=== PATIENT | female | born 1990 | race Caucasian/White ===

== ENCOUNTER 2023-02-07 20:35 | Outpatient (REF) | payer BC, SELFPAY ==
[2023-02-10 22:06] LABS: Age Gdln ACOG Testing Note (.); HPV Aptima Negative (Negative); IGP, Aptima HPV, rfx 16/18,45 Note (.)
== END 2023-02-07 20:36 | disposition home or self-care (01) ==
LOC: LAB 20:35
PROVIDERS: Visit Provider Physician Assistant
DX: Z12.4 Encounter for screening for malignant neoplasm of cervix (principal); Z11.51 Encounter for screening for human papillomavirus (HPV)
CPT/HCPCS: 87624; G0145

== ENCOUNTER 2023-03-24 12:01 | Outpatient (OUT) | payer BC, SELFPAY ==
[2023-03-24 12:45] LABS: Basophils Absolute Auto 0.1 10^3/uL (0.0-0.1); Basophils Percent Auto 0.7 % (0.2-2.0); Eosinophils Absolute Auto 0.1 10^3/uL (0.0-0.7); Eosinophils Percent Auto 1.3 % (0.9-7.0); Hematocrit 41.3 % (36.0-48.0); Hemoglobin 13.7 g/dL (12.0-16.0); Immature Granulocytes Abs Auto 0.02 10^3/uL (0.00-0.03); Immature Granulocytes Pct Auto 0.2 % (0.0-0.5); Lymphocytes Absolute Auto 2.7 10^3/uL (1.2-3.8); Lymphocytes Percent Auto 32.4 % (20.5-60.0); Mean Corpuscular HGB Conc 33.2 g/dL (29.9-35.2); Mean Corpuscular Hemoglobin 30.1 pg (26.7-34.0); Mean Corpuscular Volume 90.8 fL (81.0-99.0); Mean Platelet Volume 9.1 fL (9.5-13.5); Monocytes Absolute Auto 0.8 10^3/uL (0.3-0.8); Monocytes Percent Auto 9.8 % (1.7-12.0); Neutrophils Absolute Auto 4.6 10^3/uL (1.4-6.5); Neutrophils Percent Auto 55.6 % (43.0-75.0); Platelet Count 396 10^3/uL (150-450); Red Blood Count 4.55 10^6/uL (4.20-5.40); Red Cell Distribution Width 14.2 % (11.0-15.0); White Blood Count 8.2 10^3/uL (4.0-11.0)
[2023-03-24 12:58] LABS: Estimated Average Glucose 114 mg/dL; Glycohemoglobin A1C 5.6 % (4.5-6.2)
[2023-03-24 13:53] LABS: Alanine Aminotransferase 41 U/L (14-59); Alkaline Phosphatase 91 U/L (46-116); Anion Gap 16.8; Aspartate Amino Transferase 20 U/L (15-37); BUN Creatinine Ratio 14.1; Bilirubin Total 0.3 mg/dL (0.2-1.0); Calcium 9.1 mg/dL (8.5-10.1); Carbon Dioxide 24.4 mmol/L (21.0-32.0); Chloride 103 mmol/L (98-107); Chol HDL Ratio 2.6; Cholesterol 224 mg/dL (<=200); Estimated GFR (African America >60 (>=60); Estimated GFR (Non-African Ame >60 (>=60); Globulin 3.9 g/dL; Glucose 81 mg/dL (74-106); HDL Cholesterol 87 mg/dL (40-60); Potassium 4.2 mmol/L (3.5-5.1); Sodium 140 mmol/L (136-145); Total Protein 7.9 g/dL (6.4-8.2); Triglycerides 109 mg/dL (<=150); VLDL CHOLESTEROL 21.8 mg/dL
== END 2023-03-24 12:02 | disposition home or self-care (01) ==
LOC: LAB 12:02
DX: Z00.00 Encounter for general adult medical examination without abnormal findings (principal)
CPT/HCPCS: 36415; 80053; 80061; 83036; 84443; 85025

== ENCOUNTER 2024-03-19 19:30 | Outpatient (REF) | payer BC, SELFPAY ==
[2024-03-22 15:10] LABS: Age Gdln ACOG Testing Note (.); HPV Aptima Negative (Negative); IGP, Aptima HPV, rfx 16/18,45 Note (.)
== END 2024-03-19 19:31 | disposition home or self-care (01) ==
LOC: LAB 19:30
PROVIDERS: Visit Provider Physician Assistant
DX: Z01.419 Encounter for gynecological examination (general) (routine) without abnormal findings (principal)
CPT/HCPCS: 87624; 88175

== ENCOUNTER 2025-05-28 20:02 | Outpatient (REF) | payer BC, SELFPAY ==
--- OUTSIDE RECORDS SUMMARY | 2015-06-03 05:15 | XMS_ITS | Continuity of Care Document ---
Author Organization [facility] Address [address] [place] [address] Phone Care Team Providers Care Granular Operator Name Role Phone Sia BISHOP Hamlet Unavailable Unavailable Procedures Procedure Date IMMUNIZATION ADMIN HEP B VACCINE, ADULT, IM IMMUNIZATION ADMIN, EACH ADD FLU VAC NO PRSV 4 CHESTER 3 YRS+ IMMUNIZATION ADMIN HEP B VACCINE, ADULT, IM IMMUNIZATION ADMIN, EACH ADD FLU VAC NO PRSV 4 CHESTER 3 YRS+ Advance Directives Directive Yes / No Effective Date File Name No Information Encounters Encounter Description Practice Location Reason(s) For Visit Diagnoses Date Provider Providers Copied on Encounter [facility], [address], [place], [id number], tel:[phone] [facility] No Information Sia KNIGHT Hamlet. [address], [place], [id number], [place]. tel:[phone] Family History Family Member Type Diagnosis Age At Onset No Information Immunizations Vaccine Date Status Comments Hep B, adult, 3 dose administered Source: New Immunization Record Influenza virus vaccine, injectable, quadrivalent, split virus, preservative free, 3 years or older Fluarix, Flulaval or Fluzone Quad [id number] administered Source: New Immuniza tion Record Payers Payer name Insurance type Covered republican ID Authoriza tion(s) [facility] CI [id number] Social History Type Description Quantity Date Captured Comments Sex Female Smoking Status No Information Chief Complaint And Reason For Visit No Information Reason For Referral Reason For Referral No Information History Of Present Illness Encounter Date Complaint History Of Prese nt Illness No Information Functional Status Date Functional Assessmen t No Information Instructions Date Instruction Additional Infor mation No Information Assessments Type Assessment Date No Information Patient Care Teams Name Effective Dates (start - stop) Status Members No Information
--- OUTSIDE RECORDS SUMMARY | 2020-02-07 07:45 | XMS_ITS | Continuity of Care Document ---
Author Organization [facility] Address [address] [place] [address] Phone Care Team Providers Care String Studies Director Name Role Phone Hamlet Larsen Unavailable Unavailable Results Test Name Date and Time Measure Units Reference Range Abnormal Flag Status Comments Panel Description: SARS-CoV-2, GIGI Final SARS-CoV- 2, GIGI 020 18:33:00 Not Detected Not Detected Final This test was developed and its performance characteristics determinedby [employer]. This test has not been FDA cleared orapproved. This test has been authorized by FDA under an Emergency UseAuthorization (EUA). This test is only authorized for the duration oftime the declaration that circumstances exist justifying theauthorization of the emergency use of in vitro diagnostic tests fordetection of SARS-CoV-2 virus and/or diagnosis of COVID-19 infectionunder section 564(b)(1) of the Act, 21 U.S.C. 360bbb-3(b)(1), unlessthe authorization is terminated or revoked sooner.When diagnostic testing is negative, the possibility of a falsenegative result should be considered in the context of a patient'srecent exposures and the presence of clinical signs and symptomsconsistent with COVID-19. An individual without symptoms of COVID-19and who is not shedding SARS-CoV-2 virus would expect to have anegative (not detected) result in this assay.Performed by:[facility] ([facility]) Advance Directives Directive Yes / No Effective Date File Name No Information Encounters Encounter Description Practice Location Reason(s) For Visit Diagnoses Date Provider Providers Copied on Encounter [facility], [address] [place] [address], [place], [place], [id number], tel:[phone] [facility] Encounter for screening for other viral diseases Sia Pham. [address] [facility], [place], [place], [id number], [place]. tel:[phone] Family History Family Member Type Diagnosis Age At Onset No Information Payers Payer name Insurance type Covered libertarian ID Authorpromise spaindarlene(s) [employer] WELLS [id number] Social History Type Description Quantity Date Captured Comments Alcohol Use Details Unknown Caffeine Use Details Unknown Tobacco Use Status No Information Smoking Status No Information Sex Female Sexual Orientation Straight or heterosexual Gender Identity Female Chief Complaint And Reason For Visit No Information Reason For Referral Reason For Referral No Information History Of Present Illness Encounter Date Complaint History Of Prese nt Illness No Information Functional Status Date Functional Assessmen t No Information Instructions Date Instruction Additional Infor mation No Information Assessments Type Assessment Date assessment Encounter for screening for othe r viral diseases Patient Care Teams Name Effective Dates (start - stop) Status Members No Information
--- OUTSIDE RECORDS SUMMARY | 2025-05-28 10:00 | XMS_ITS | Encounter Summary ---
Author Organization [facility] Address [address] [facility] [place] [address] Care Team Providers Care Construction Rep Name Role Phone Real Anton DO Primary Care Provider [phone] Reason for Visit * ReasonCommentsGynecologic Exam Encounter Details DateTypeDepartmentCare Team (Latest Contact Info)Hfmxcvbelsy73/29/2025 10:00 AM EDTProcedure Visit [facility] [address] [place] [address] Naida Marino, CHRISTY [address] [place] [address] Well woman exam with routine gynecological exam Social History Tobacco UseTypesPacks/DayYears UsedDateSmoking Tobacco: Never Assessed CommentsNoSex and Gender InformationValueDate RecordedSex Assigned at BirthNot on fileLegal EjpEbvoyc02/15/2023 7:21 PM EDTGender IdentityNot on fileSexual OrientationNot on filedocumented as of this encounter Progress Notes * Naida Marino NP - 05/28/2025 10:00 AM EDT Reason for Appointment: Patient ID: Emilie Dc is a 34 y.o. female who presents for Gynecologic Exam Patient presents today for Annual Exam. MEDICATIONS Current Outpatient Medications Medication Instructions levothyroxine (Synthroid, Levoxyl) 150 MCG tablet TAKE 1 TABLET BY MOUTH EVERY DAY IN THE MORNING ON EMPTY STOMACH FOR 90 DAYS ALLERGIES Allergies Allergen Reactions Cefadroxil Rash PROBLEMS Active Ambulatory Problems Diagnosis Date Noted No Active Ambulatory Problems Resolved Ambulatory Problems Diagnosis Date Noted No Resolved Ambulatory Problems Past Medical History: Diagnosis Date Hypothyroid HISTORY PAST MEDICAL HISTORY SOCIAL HISTORY Past Medical History: Diagnosis Date Hypothyroid Social History Tobacco Use Smoking status: Not on file Smokeless tobacco: Not on file Substance Use Topics Alcohol use: Not on file Drug use: Not on file FAMILY HISTORY Family History Problem Relation Name Age of Onset Hypertension Mother Melanoma Mother Asthma Daughter SURGICAL HISTORY History reviewed. No pertinent surgical history. REVIEW OF SYSTEMS Review of Systems: Review of Systems Constitutional: Negative. HENT: Negative. Eyes: Negative. Respiratory: Negative. Cardiovascular: Negative. Gastrointestinal: Negative. Genitourinary: Negative. Musculoskeletal: Negative. Skin: Negative. Neurological: Negative. All other systems reviewed and are negative. Hematological: Negative. Endocrine: Negative. Allergic/Immunologic: Negative. OBJECTIVE Objective: Physical Exam Constitutional: Appearance: Normal appearance. She is well-developed. Genitourinary: Vulva normal. Breasts: Breasts are soft. Right: Normal. Left: Normal. Cardiovascular: Rate and Rhythm: Normal rate and regular rhythm. Pulmonary: Effort: Pulmonary effort is normal. Breath sounds: Normal breath sounds. Abdominal: General: Bowel sounds are normal. There is no distension. Palpations: Abdomen is soft. Tenderness: There is no abdominal tenderness. There is no guarding or rebound. Musculoskeletal: General: No swelling. Normal range of motion. Right lower leg: No edema. Left lower leg: No edema. Neurological: Mental Status: She is alert and oriented to person, place, and time. Skin: General: Skin is warm and dry. Psychiatric: Mood and Affect: Mood normal. Behavior: Behavior normal. Vitals and nursing note reviewed. Exam conducted with a science interpreter present. Vitals: Estimated body mass index is 39.86 kg/m?? as calculated from the following: Height as of 03/19/24: 5'. Weight as of 03/19/24: 204 lb 1.9 oz. BP: No LMP recorded. ASSESSMENT & PLAN ICD-10-CM 1. Well woman exam with routine gynecological exam Z01.419 Pap Smear HPV DNA probe, amplified Annual Exam: Patient presents today for an annual exam. Patient states she is doing well and has no complaints. Pap was obtained without difficulty. Orders Placed This Encounter Procedures HPV DNA probe, amplified Follow Up: Patient is to return in one year for annual unless needed otherwise. Documented by Maggi Cottrell CST on behalf of: Naida Marino NP documented in this encounter Plan of Treatment DateTypeDepartmentCare Team (Latest Contact Info)Uxqnrashbgq12/30/2025 3:05 PM EDTOffice Visit [facility] [address] [place] [address] Eli Fulton, FIRST AID INSTRUCTOR-AD CLERK [address] [place] [address] NameTypePriorityAssociated DiagnosesOrder SchedulePap SmearPathology and CytologyRoutine Well woman exam with routine gynecological exam Ordered: 05/28/2025HPV DNA probe, amplifiedMicrobiologyRoutine Well woman exam with routine gynecological exam Ordered: 05/28/2025documented as of this encounter Visit Diagnoses Diagnosis Well woman exam with routine gynecological exam Routine gynecological examination documented in this encounter Care Teams Team MemberRelationshipSpecialtyStart DateEnd Date Real Anton DO [address] [place] [phone] PCP - General02/07/23documented as of this encounter
--- OUTSIDE RECORDS SUMMARY | 2025-05-28 20:06 | XMS_ITS | Clinical Summary ---
Author Organization [facility] Address [address] [place] [address] Care Team Providers Care Wool Cleaner Name Role Phone Real Anton Primary Care Provider [phone] Allergies Active AllergyReactionsCriticalityNoted McrqNkoymnxlIrpvwaxfauGhfwCja56/24/2023 Medications MedicationSigDispense QuantityRefillsLast FilledStart DateEnd DateStatus levothyroxine (Synthroid, Levoxyl) 150 MCG tablet TAKE 1 TABLET BY MOUTH EVERY DAY IN THE MORNING ON EMPTY STOMACH FOR 90 DAYS 09/13/2022ctive Encounters DateTypeDepartmentCare BppxVzdwfuhkrsb86/29/2025 10:00 AM EDTProcedure Visit [facility] [address] [place] [address] Naida Marino NP Well woman exam with routine gynecological exam05/28/2025amboo flowsheet [facility] [address] [place] [address] Naida Marino NP 05/22/2025Orders Only [facility] [address] [place] [address] Luz Doss LPN from Last 3 Months Family History Medical HistoryRelationNameCommentsAsthmaDaughter 2HypertensionMotherMelanoma MotherRelationNameStatusCommentsDaughter 1AliveDaughter 2AliveFatherAliveMother Alive Social History Tobacco UseTypesPacks/DayYears UsedDateSmoking Tobacco: Never Assessed CommentsNoSex and Gender InformationValueDate RecordedSex Assigned at BirthNot on fileLegal SseXxbeki41/15/2023 7:21 PM EDTGender IdentityNot on fileSexual OrientationNot on file Last Filed Vital Signs Vital SignReadingTime TakenCommentsBlood Cbvvuadg753/68003/19/2024 9:21 AM EDT Pulse--Temperature--Respiratory Rate--Oxygen Saturation--Inhaled Oxygen Concentration--Dvhnmp08.6 kg (204 lb 1.9 oz)03/19/2024 9:21 AM VYZQdsfvh087.4 cm (5')03/19/2024 9:21 AM EDTBody Mass Index39.8603/19/2024 9:21 AM EDT Plan of Treatment DateTypeDepartmentCare Team (Latest Contact Info)Petscilrsrw34/30/2025 3:05 PM EDTOffice Visit [facility] [address] [place] [address] Eli Fulton APRN-STEWARD RACETRACK [address] [place] [address] Health MaintenanceDue DateLast DoneCommentsMMR Vaccines (1 of 1 - Standard series)11/19/1991DTaP/Tdap/Td Vaccines (1 - Tdap)1997Varicella Vaccines (1 of 2 - 13+ 2-dose series)11/19/2003Hepatitis B Vaccines (1 of 3 - 19+ 3-dose series)2009HPV Vaccines (1 - 3-dose SCDM series)2017COVID-19 Vaccine ( - season)/, 06/30/2021Influenza Vaccine (#1) /10/2015, 06/03/2015Pap Smear, 01/03/2023 Cervical Cancer Tnouzrrtq96/17/2028HPV/Uxtvds05HIB Vaccines Aged OutNo longer eligible based on patient's age to complete this topic Hepatitis A VaccinesAged OutNo longer eligible based on patient's age to complete this topicIPV VaccinesAged OutNo longer eligible based on patient's age to complete this topicMeningococcal B VaccineAged OutNo longer eligible based on patient's age to complete this topicMeningococcal VaccineAged OutNo longer eligible based on patient's age to complete this topicPneumococcal Vaccine: Pediatrics (0 to 5 Years) and At-Risk Patients (6 to 64 Years)Aged OutNo longer eligible based on patient's age to complete this topicRotavirus VaccinesAged Out No longer eligible based on patient's age to complete this topic Procedures Procedure NamePriorityDate/TimeAssociated DiagnosisCommentsPAP TEST, EXTERNAL Gjpxvah7203/19/2024 12:00 AM EDTTHINPREP PAP AND HPV MRNA E6/E7 W/RFL HPV 16,18/45 Njnxrvs3303/16/2023 3:42 PM EDT Well woman exam with routine gynecological exam from Last 3 Months or Most Recently Relevant to Health Maintenance Results * PAP TEST, EXTERNAL (03/19/2024 12:00 AM EDT) Narrative Authorizing ProviderResult TypeResult StatusFazio Nurse [facility] CYTOLOGY ORDERABLESFinal ResultPerforming OrganizationAddressCity/State/ZIP CodePhone Number EXTERNAL LAB * THINPREP PAP AND HPV MRNA E6/E7 W/RFL HPV 16,18/45 (03/16/2023 3:42 PM EDT) Narrative Authorizing ProviderResult TypeResult StatusAmy Ese PALAB BLOOD ORDERABLES Final ResultPerforming OrganizationAddressCity/State/ZIP CodePhone Number EXTERNAL LAB from Last 3 Months or Most Recently Relevant to Health Maintenance Insurance Care Teams Team MemberRelationshipSpecialtyStart DateEnd Date Real Anton DO [address] [place] [address] [facility]02/07/23
--- OUTSIDE RECORDS SUMMARY | 2025-05-28 20:06 | XMS_ITS | Encounter Summary ---
Author Organization [facility] Address [address] [facility] [place] [address] Care Team Providers Care Newscast Director Name Role Phone Real Anton DO Primary Care Provider [phone] Encounter Details DateTypeDepartmentCare Team (Latest Contact Info)Oriwpggucfv93/29/2025amboo flowsheet [facility] [place] [facility] [address] [place] [address] Naida Marino NP [address] [place] [address] Social History Tobacco UseTypesPacks/DayYears UsedDateSmoking Tobacco: Never Assessed CommentsNoSex and Gender InformationValueDate RecordedSex Assigned at BirthNot on fileLegal DpkOoltla78/15/2023 7:21 PM EDTGender IdentityNot on fileSexual OrientationNot on filedocumented as of this encounter Plan of Treatment DateTypeDepartmentCare Team (Latest Contact Info)Rdaxcneenud98/30/2025 3:05 PM EDTOffice Visit [facility] [address] [place] [address] Eli Fulton, BEND UP-EMPLOYMENT MANAGER [address] [place] [address] documented as of this encounter Visit Diagnoses Not on filedocumented in this encounter Care Teams Team MemberRelationshipSpecialtyStart DateEnd Date Real Anton DO [facility] [place] [address] [facility]02/07/23documented as of this encounter
--- OUTSIDE RECORDS SUMMARY | 2025-05-28 20:06 | XMS_ITS | Encounter Summary ---
Author Organization [facility] Address [address] [place] [address] Care Team Providers Care Business Mail Entry Clerk Name Role Phone Real Anton DO Primary Care Provider [phone] Encounter Details DateTypeDepartmentCare Team (Latest Contact Info)Igvqybxwrpk31/23/2025Orders Only [facility] [address] [place] [address] Luz Doss LPN [address] [facility] Social History Tobacco UseTypesPacks/DayYears UsedDateSmoking Tobacco: Never Assessed CommentsNoSex and Gender InformationValueDate RecordedSex Assigned at BirthNot on fileLegal MgpBngaac17/15/2023 7:21 PM EDTGender IdentityNot on fileSexual OrientationNot on filedocumented as of this encounter Plan of Treatment DateTypeDepartmentCare Team (Latest Contact Info)Kqqyulmjevw16/30/2025 3:05 PM EDTOffice Visit [facility] [address] [place] [address] Eli Fulton, WELL TREATMENT OFFSIDER-SWITCHBOARD OPERATOR RECEPTIONIST [address] [place] [address] documented as of this encounter Procedures Procedure NamePriorityDate/TimeAssociated DiagnosisCommentsPAP TEST, EXTERNAL Bowqrfo3303/19/2024 12:00 AM EDTdocumented in this encounter Results * PAP TEST, EXTERNAL (03/19/2024 12:00 AM EDT) Narrative Authorizing ProviderResult TypeResult StatusFazio Nurse [facility] CYTOLOGY ORDERABLESFinal ResultPerforming OrganizationAddressCity/State/ZIP CodePhone Number EXTERNAL LAB documented in this encounter Visit Diagnoses Not on filedocumented in this encounter Care Teams Team MemberRelationshipSpecialtyStart DateEnd Date Real Anton DO [address] [place] [address] PCP - General02/07/23documented as of this encounter
--- OUTSIDE RECORDS SUMMARY | 2025-05-28 20:06 | XMS_ITS | CCD ---
Author Organization [facility] Care Team Providers Care Vision Rehabilitation Therapist Name Role Phone Real Anton Unavailable DO Real Anton Primary Care Provider DO Real Anton Attending Provider DORCAS MONTEJO Admitting Unavailable DORCAS MONTEJO Attending Unavailable DORCAS MONTEJO Consulting Unavailable DO Real Anton Primary Care Provider MD Benito Thomas Emergency Provider NORA MAURICE Attending Unavailable NORA MAURICE Attending Unavailable NORA MAURICE Attending Unavailable DO Real Anton Primary Care Provider DO Real Anton Attending Provider Real Anton MD Primary Care Provider Real Anton DO Primary Care Provider Real Anton DO Attending Provider [phone] Real Anton DO Other Provider Talat Ramachandran MD Attending Provider Real Anton Primary Care Unavailable Real Anton Attending Unavailable Real Anton Admitting Unavailable Real Anton Primary Care Unavailable Real Anton Attending Unavailable Real Anton Admitting Unavailable Allergies Allergy ClassificationReported Allergen(s)Allergy TypeDate of OnsetReaction(s) Facility (16 sources)AmoxicillinDrug Aryjhae36-46-5098xeahHinfyaezgMer[facility] (11 sources)duracefPropensity to adverse reactionsNem[facility] Other (1 source)AmoxicillinDrug Kuejqsc60-48-4892Vcq [facility] Repository (1 source)CefadroxilDrug Craeunq14-40-2150Xsu [facility] Repository (11 sources)Cefadroxil; Translations: [cefadroxil]Drug Xangrho28-54-6415RlfjC[facility] (1 source)AmoxicillinDrug Kvdvwhm04-35-8470WomotpmfvSelect [facility] Repository Medications Current Medications MedicationDrug Class(es)DatesSig (Normalized)Sig (Original)acetaminophen 325 mg oral tablet (3 sources)Start: 66-37-9753wauo 1 tablet by mouth every six hours as needed cefdinir 300 mg oral capsule (2 sources)Cephalosporin AntibacterialStart: 59-89-4640ywfl 1 capsule by mouth every twelve hoursCefdinir 300 MG 1 capsule Orally BID for 10 days Jul, Activecetirizine hydrochloride 10 mg oral tablet (16 sources)Histamine-1 Receptor AntagonistStart: 82-16-3600urjr 1 tablet by mouth once dailyStart: 19-10-9185ihkv 1 tablet by mouth every twenty-four hours ZyrTEC Allergy 10 MG 1 tablet Orally Once a day PRN Jul, Active predniSONE 20 mg oral tablet (3 sources)Start: 38-03-5305zpwemyBLJW 20 MG 1 tablet Orally twice a day for 7 days then daily for 7 days for 14 days November, Activetriamcinolone acetonide 1 mg/ml topical cream (3 sources)CorticosteroidTriamcinolone Acetonide 0.1 % 1 application Externally Two times a Week Active Completed/Discontinued Medications MedicationDrug Class(es)DatesSig (Normalized)Sig (Original)levothyroxine sodium 0.15 mg oral tablet (20 sources)l-ThyroxineStart: 07-08-2019 End: 21-14-9355izzw 1 tablet by mouth once daily in the morningLevothyroxine (Synthroid) 150 mcg tablet Discontinued 150 MCG PO Daily October 11, 2023 4:03pm December 30, 2024 1:10pm FreeTextSi tablet in the morning on an empty stomach Orally Once a day; Provider: Sloane Noble PStart: 20-68-5164pgtr 1 tablet by mouth once daily in the morningSynthroid 150 MCG 1 tablet in the morning on an empty stomach Orally Once a day for 90 days Active methylPREDNISolone (9 sources)CorticosteroidStart: 07-98-3435QEMX-MEDROL 41 - 125 mg November, 125 mg Problems Active Problems Problem ClassificationProblemDateDocumented DateEpisodic/ChronicAdjustment disorders (16 sources)Stress; Translations: [Reaction to severe stress, unspecified] 36-71-7890JylcktzGawegvytqkdpro/social admission (4 sources)Encounter for pre-employment examination; Translations: [ENCOUNTER FOR PRE-EMPLOYMENT EXAM]Onset: 37-17-7436FshrwgweWhyfjea disorders (16 sources)Mixed anxiety and depressive disorder; Translations: [Other specified anxiety disorders]73-30-3454AdbivraIzqlitmjn of lipid metabolism (16 sources)Hyperlipidemia; Translations: [Hyperlipidemia, unspecified] 23-01-9982BtawywkZmygt and electrolyte disorders (6 sources)Dehydration; Translations: [Dehydration]39-98-5394ThlpfgwuRdoqn gastrointestinal disorders (6 sources)Diarrhea; Translations: [Diarrhea, unspecified]33-05-4462Tcgakjvm Other non-traumatic joint disorders (1 source)Pain in unspecified wristEpisodicOther non-traumatic joint disorders (3 sources)Pain of left wrist; Translations: [Pain in left wrist]EpisodicOther non-traumatic joint disorders (3 sources)Bilateral wrist pain; Translations: [Pain in right wrist]Episodic Other non-traumatic joint disorders (1 source)Pain in right wristEpisodicOther non-traumatic joint disorders (1 source)Pain in left wristEpisodicOther screening for suspected conditions (not mental disorders or infectious disease) (3 sources)Electrocardiogram abnormal; Translations: [Abnormal electrocardiogram [ECG] [EKG]]02-09-1031ZzpeigdxCvhdq skin disorders (6 sources)Skin lesion; Translations: [Disorder of the skin and subcutaneous tissue, unspecified]EpisodicOther upper respiratory disease (1 source)Other specified disorders of nose and nasal sinusesEpisodicThyroid disorders (20 sources)Hypothyroidism; Translations: [Hypothyroidism, unspecified]Onset: 46-35-8385ItejmutKvtcixmoqazt (3 sources)L98.9 - Disorder of the skin and subcutaneous tissue, unspecified Past or Other Problems Problem ClassificationProblemDateDocumented DateEpisodic/ChronicAllergic reactions (1 source)Unspecified contact dermatitis, unspecified causeOnset: 12-28-2021 Resolved: 76-24-3968IylpscuyGqsmk upper respiratory disease (1 source)Nasal congestionOnset: 06-09-2021 Resolved: 63-96-8637Wcxawkux Results Test NameValueInterpretationReference RangeFacilityAlanine aminotransferase [Enzymatic activity/volume] in Serum or PlasmaOrdered By: Real Anton on 82-68-9785LNY [Catalytic activity/Vol]23 U/LNormal7-52[facility], IncComment on above:Performed By: #### CBC, TSH3, CMP, T4F, LIPID #### [facility] [address] [place] [address] USAAlbumin [Mass/volume] in Serum or Plasma by Bromocresol green (BCG) dye binding methoOrdered By: Real Anton on 01-83-3437Dokkswo BCG dye [Mass/Vol]4.6 g/dL3.5-5.7FTwin City HospitalAlkaline phosphatase [Enzymatic activity/volume] in Serum or PlasmaOrdered By: Real Anton on 49-15-9552UPY [Catalytic activity/Vol]78 U/KDjkbnh77-126NrbvfrjezSelect Medical Specialty Hospital - [facility], IncComment on above:Performed By: #### CBC, TSH3, CMP, T4F, LIPID #### [facility] [address] [place] [address] USAAspartate aminotransferase [Enzymatic activity/volume] in Serum or PlasmaOrdered By: Real Anton on 74-94-5585SKW [Catalytic activity/Vol] 18 U/KTnghql01-01BfatgylmpSelect Medical Specialty Hospital - [facility], IncComment on above:Performed By: #### CBC, TSH3, CMP, T4F, LIPID #### [facility] [address] [place] [address] USABasophils [#/volume] in Blood by Automated countOrdered By: Real Anton on 61-67-7099Rnophqwhk (Bld) [#/Vol]0.0 10*3/uLNormal0.0-0.2 [facility], IncComment on above:Result Comment: PERFORMED BY: [place] [address] PATHOLOGIST CHRISTMAS TREE GROWER GURU ALEXIS M.D.Performed By: #### CBC, TSH3, CMP, T4F, LIPID #### [place] [address] USABasophils/100 leukocytes in Blood by Automated count Ordered By: Real Anton on 97-00-9199Pinnwqjne/100 WBC (Bld)0.5 %Normal.[facility], IncComment on above:Performed By: #### CBC, TSH3, CMP, T4F, LIPID #### [place] [address] USABilirubin.total [Mass/volume] in Serum or PlasmaOrdered By: Real Anton on 76-14-5152Waktvkwoq [Mass/Vol]0.5 mg/dLNormal0.3-1.0[facility], IncComment on above:Performed By: #### CBC, TSH3, CMP, T4F, LIPID #### [place] [address] USACalcium [Mass/volume] in Serum or PlasmaOrdered By: Real Anton on 79-76-1409Lsigzaa [Mass/Vol]9.6 mg/dLNormal8.6-10.3FTwin City HospitalComment on above:Performed By: #### CBC, TSH3, CMP, T4F, LIPID #### [place] [address] USACarbon dioxide, total [Moles/volume] in Serum or Plasma Ordered By: Real Anton on 33-99-0175FL5 [Moles/Vol]29.0 mmol/KFhdyog31.0-31.0 [facility], IncComment on above:Performed By: #### CBC, TSH3, CMP, T4F, LIPID #### [place] [address] USAChloride [Moles/volume] in Serum or PlasmaOrdered By: Real Anton on 35-04-7147Uycykmtf [Moles/Vol]104 mmol/QJnioyb80-803VidxjubcrSelect Medical Specialty Hospital - [facility], IncComment on above:Performed By: #### CBC, TSH3, CMP, T4F, LIPID #### [facility] [address] [place] [address] USACholesterol [Mass/volume] in Serum or PlasmaOrdered By: Real Anton on 84-29-1818Usvkmjpbpba [Mass/Vol]235 mg/pDEbmm034-911UdsswuqwoSelect Medical Specialty Hospital - [facility], IncComment on above:Chol less than 200 mg/dl low riskChol 201-239 mg/dl borderline riskChol 240 mg/dl and greater high riskResult Comment: Chol less than 200 mg/dl low risk Chol 201-239 mg/dl borderline risk Chol 240 mg/dl and greater high riskPerformed By: #### CBC, TSH3, CMP, T4F, LIPID #### [facility] [address] [place] [address] USACholesterol in HDL [Mass/volume] in Serum or PlasmaOrdered By: Real Anton on 32-69-7074Fhumjaccpzn in HDL [Mass/Vol]78 mg/kHAsavop95-89 [facility], IncComment on above:HDL CHOL ATP-III CLASSIFICATION Cardiovascular RiskHDL > or equal to 60 mg/dL LOWHDL < 40 mg/dL HIGHResult Comment: HDL CHOL ATP-III CLASSIFICATION Cardiovascular Risk HDL > or equal to 60 mg/dL LOW HDL < 40 mg/dL HIGHPerformed By: #### CBC, TSH3, CMP, T4F, LIPID #### [facility] [address] [place] [address] USACholesterol in LDL Calc [Mass/Vol]Ordered By: Real Anton on 69-03-4136Dvxjwqkleqz in LDL [Mass/Vol]126 mg/dLHigh0-100[facility], IncComment on above:LDL ATP III CLASSIFICATIONLDL less than 100 mg/dL OptimalLDL 100-129 mg/dL Near or above iscehmnSSO536-396 mg/dL Borderline highLDL 160-189 mg/dL HighLDL greater than 189 mg/dL Very highCholesterol in VLDL Calc [Mass/Vol]Ordered By: Real Anton on 59-00-2600Xqdzgexzrpn in VLDL [Mass/Vol]31 mg/dLFirelands Regional Medical CenterComplete Blood Count Auto Diffon 06-22-9676Sivx Corpuscular HGB Conc34.1 g/dWYfymor28.0-35.0The Replaced By [facility] Physician GroupComment on above:Performed By: #### CBC, TSH3, CMP, T4F, LIPID #### [facility] [address] [place] [address] USANRBC%0.1 /100{WBC}Normal0-0.5The Replaced By [facility] Comment on above:Performed By: #### CBC, TSH3, CMP, T4F, LIPID #### [place] [address] USAWhite Blood Count8.2 [CFU]/mLNormal3.8-11.6The Replaced By [facility] Physician [facility] VicksburgComment on above:Performed By: #### CBC, TSH3, CMP, T4F, LIPID #### [place] [address] USAComprehensive Metabolic Panelon 99-79-7069Yanryen [Mass/Vol]4.6 g/dLNormal3.5-5.7The Replaced By [facility] Physician [facility] VicksburgComment on above: Performed By: #### CBC, TSH3, CMP, T4F, LIPID #### [place] [address] USAGFR/1.73 sq M.predicted MDRD (S/P/Bld) [Vol rate/Area] mL/min/{1.73_m2}NormalThe Replaced By [facility] Physician [facility] Of VicksburgComment on above:Performed By: #### CBC, TSH3, CMP, T4F, LIPID #### [place] [address] USACreatinine [Mass/volume] in Serum or PlasmaOrdered By: Real Anton on 43-54-4352Xwrembyuus [Mass/Vol]0.69 mg/dLNormal0.60-1.20[facility], IncComment on above:Performed By: #### CBC, TSH3, CMP, T4F, LIPID #### [place] [address] USAEosinophils [#/volume] in Blood by Automated countOrdered By: Real Anton on 44-61-3464Ayhpjomvlps (Bld) [#/Vol]0.1 10*3/uLNormal0.0-0.45 [facility], IncComment on above:Performed By: #### CBC, TSH3, CMP, T4F, LIPID #### [facility] [address] [place] [address] USAEosinophils/100 leukocytes in Blood by Automated count Ordered By: Real Anton on 53-69-1850Mcltsgmoika/100 WBC (Bld)0.9 %Normal. [facility], IncComment on above:Performed By: #### CBC, TSH3, CMP, T4F, LIPID #### [place] [address] USAErythrocyte distribution width [Ratio] by Automated count Ordered By: Real Anton on 32-77-7452Mqrluqqdcsg distribution width (RBC) [Ratio] 14.2 %Ermiic33.9-15.3FTwin City HospitalComment on above:Performed By: #### CBC, TSH3, CMP, T4F, LIPID #### [place] [address] USAErythrocytes [#/volume] in Blood by Automated countOrdered By: Real Anton on 69-07-8276VQM (Bld) [#/Vol]4.38 10*6/uLNormal3.60-5.00 [facility], IncComment on above:Performed By: #### CBC, TSH3, CMP, T4F, LIPID #### [place] [address] USAFPG ECG *PCP OFFICE ONLY*on 42-76-9659IIE ECG *PCP OFFICE ONLY*[facility] [place] [address] [place] [address] Electrocardiograph Report Signed Patient: mEilie Dc MR#: [id number] 6 : 1990 Acct:[id number] Age/Sex: 34 / F ADM Date: 04/09/25 Loc: [facility] Room: Type: [facility] Attending Dr: Real Anton DO Ordering Provider: Real Anton DO Date of Service: 04/09/2505/24/739 ECG/FPG ECG *PCP OFFICE ONLY*: Z00.00 - Encounter for general adult medical examination ... Copies to: Test Reason : Blood Pressure : */* mmHG Vent. Rate : 75 BPM Atrial Rate : 75 BPM P-R Int : 152 ms QRS Dur : 76 ms QT Int : 364 ms P-R-T Axes : 3 4 23 degrees QTcB Int : 406 ms Normal sinus rhythm Possible Anterior infarct (cited on or before 05-Apr-2024) Abnormal ECG When compared with ECG of 05-Apr-2024 08:12, No significant change was found Confirmed by Talat Ramachandran ([id number]) on 04/09/2025 8:45:35 AM Referred By: Electronically Signed By: Talat Ramachandran Transcribed By: MUS Signed By Talat Ramachandran MD 04/09/25 0845[facility] Physician GroupGlomerular filtration rate [Volume Rate/Area] in Serum, Plasma or Blood by CreatinineOrdered By: Real Anton on 09-38-9584Nmbfbklzwp filtration rate [Volume Rate/Area] in Serum, Plasma or Blood by Creatinine> 60.0 mL/MinSelect Medical Specialty Hospital - [facility], IncGlucose [Mass/volume] in Serum or PlasmaOrdered By: Real Anton on 29-45-1122Zneinkh [Mass/Vol]91 mg/lHKpfmpe64-617RtvrdrrvrSelect Medical Specialty Hospital [facility], IncComment on above: ADA recommended reference rangeRandom Glucose Reference Range is dependent on time and content of last meal. Glucose of more than 200 mg/dL in a nonstressed, ambulatory subject supports the diagnosisof Diabetes Mellitus.Result Comment: Random Glucose Reference Range is dependent on time and content of last meal. Glucose of more than 200 mg/dL in a nonstressed, ambulatory subject supports the diagnosis of Diabetes Mellitus. ADA recommended reference rangePerformed By: #### CBC, TSH3, CMP, T4F, LIPID #### [facility] [address] [place] [address] USAHematocrit [Volume Fraction] of Blood by Automated count Ordered By: Real Anton on 22-04-4819Ehiyjpmfxr (Bld) [Volume fraction]39.8 % Qwqupg35.0-46.4FTwin City HospitalComment on above:Performed By: #### CBC, TSH3, CMP, T4F, LIPID #### [facility] [address] [place] [address] USAHemoglobin [Mass/volume] in BloodOrdered By: Real Anton on 34-44-2944Bwiyimcctt (Bld) [Mass/Vol]13.6 g/rWFdgfim94.8-15.4FTwin City HospitalComment on above:Performed By: #### CBC, TSH3, CMP, T4F, LIPID #### [facility] [address] [place] [address] USALeukocytes [#/volume] corrected for nucleated erythrocytes in Blood by Automated counOrdered By: Real Anton on 73-18-4186ILV corrected for nucl RBC Auto (Bld) [#/Vol]8.2 10*3/uL3.8-11.6FTwin City Hospital Leukocytes [#/volume] in Blood by Automated countOrdered By: Real Anton on 46-02-8786YZP (Bld) [#/Vol]8.2 10*3/uLNormal3.8-11.6FTwin City HospitalComment on above:Performed By: #### CBC, TSH3, CMP, T4F, LIPID #### [facility] [address] [place] [address] USALipid Panelon 18-57-1250JJK Cholesterol,Gwpefowblg820 mg/dLHigh0-100The Replaced By [facility] Physician GroupComment on above:Result Comment: LDL ATP III CLASSIFICATION LDL less than 100 mg/dL Optimal LDL 100-129 mg/dL Near or above optimal LDL 130-159 mg/dL Borderline high LDL 160-189 mg/dL High LDL greater than 189 mg/dL Very highPerformed By: #### CBC, TSH3, CMP, T4F, LIPID #### [facility] [address] [place] [address] USATriglyceride w/Ucndyl360 mg/dLHigh0-149The Replaced By [facility] Physician GroupComment on above:Result Comment: TRIG ATP III CLASSIFICATION TRIG less than 150 mg/dL Normal TRIG 150-199 mg/dL Borderline high TRIG 200-500 mg/dL High TRIG greater than 500 mg/dL Very high Standard traceable to the Center for Disease Conrtrol and Prevention (CDC) test method.Performed By: #### CBC, TSH3, CMP, T4F, LIPID #### [facility] [address] [place] [address] USAVLDL LBZDXZKMQKY97 mg/dLNoDorothea Dix Hospital Physician [facility] VicksburgComment on above:Performed By: #### CBC, TSH3, CMP, T4F, LIPID #### [place] [address] USALymphocytes [#/volume] in Blood by Automated countOrdered By: Real Anton on 78-45-0905Csxtfucayfc (Bld) [#/Vol]2.2 10*3/uLNormal1.00-4.8 [facility], IncComment on above:Performed By: #### CBC, TSH3, CMP, T4F, LIPID #### [place] [address] USALymphocytes/100 leukocytes in Blood by Automated count Ordered By: Real Anton on 57-26-5075Vmmurgqsncy/100 WBC (Bld)27.0 %Normal. [facility], IncComment on above:Performed By: #### CBC, TSH3, CMP, T4F, LIPID #### [place] [id number] [facility] [Entitic mass] by Automated countOrdered By: Real Anton on 98-47-6326AQR (RBC) [Entitic mass]30.9 yzKlwtdf69.7-34.3FTwin City HospitalComment on above:Performed By: #### CBC, TSH3, CMP, T4F, LIPID #### [place] [id number] [facility] Auto (RBC) [Mass/Vol]Ordered By: Real Anton on 13-42-2801NRVQ (RBC) [Mass/Vol]34.1 g/dL32.0-35.0[facility], IncMCV [Entitic volume] by Automated countOrdered By: Real Anton on 92-27-7830ABS (RBC) [Entitic vol]90.8 kPIcvdcb18-457BlxbzcbluSelect Medical Specialty Hospital - [facility], IncComment on above:Performed By: #### CBC, TSH3, CMP, T4F, LIPID #### [facility] [address] [place] [id number] USAMonocytes [#/volume] in Blood by Automated countOrdered By: Real Anton on 38-95-0903Uqmnxatph (Bld) [#/Vol]0.8 10*3/uLNormal0.0-0.8 [facility], IncComment on above:Performed By: #### CBC, TSH3, CMP, T4F, LIPID #### [place] [id number] USAMonocytes/100 leukocytes in Blood by Automated count Ordered By: Real Anton on 68-68-1038Zlppqxbat/100 WBC (Bld)9.7 %Normal.[facility], IncComment on above:Performed By: #### CBC, TSH3, CMP, T4F, LIPID #### [place] [address] USANeutrophils [#/volume] in Blood by Automated countOrdered By: Real Anton on 57-98-6518Smxxpgglhdp (Bld) [#/Vol]5.1 10*3/uLNormal1.8-7.7 [facility], IncComment on above:Performed By: #### CBC, TSH3, CMP, T4F, LIPID #### [place] [id number] USANeutrophils/100 leukocytes in Blood by Automated count Ordered By: Real Anton on 70-89-7592Xyejknaredj/100 WBC (Bld)61.9 %Normal. [facility], IncComment on above:Performed By: #### CBC, TSH3, CMP, T4F, LIPID #### [place] [id number] USANo Panel InformationOrdered By: Real Anton on 04-09-2025 Pharmacy Creatinine Clearance (ChemN/AFTwin City HospitalNucleated erythrocytes [Presence] in Blood by Automated countOrdered By: Real Anton on 53-07-8844Kkmutijev RBC Auto Ql (Bld)0.1 /100{WBC}0-0.5FTwin City HospitalPlatelet mean volume [Entitic volume] in Blood by Automated count Ordered By: Real Anton on 14-67-9885Jsxjiows mean volume (Bld) [Entitic vol]8.3 fLNormal6.3-10.7FTwin City HospitalComment on above:Performed By: #### CBC, TSH3, CMP, T4F, LIPID #### [facility] [address] [place] [address] USAPlatelets [#/volume] in Blood by Automated countOrdered By: Real Anton on 50-13-5844Ptnnwlylb (Bld) [#/Vol]386 10*3/zHOzjzhq735-798 [facility], IncComment on above:Performed By: #### CBC, TSH3, CMP, T4F, LIPID #### [facility] [address] [place] [address] USAPotassium [Moles/volume] in Serum or PlasmaOrdered By: Real Anton on 53-06-0405Cphdpxwpt [Moles/Vol]4.7 mmol/LNormal3.5-5.1FTwin City HospitalComment on above:Performed By: #### CBC, TSH3, CMP, T4F, LIPID #### [facility] [address] [place] [address] USAProtein [Mass/volume] in Serum or PlasmaOrdered By: Real Anton on 06-57-4891Zgfwifw [Mass/Vol]7.5 g/dLNormal6.4-8.9[facility], IncComment on above:Performed By: #### CBC, TSH3, CMP, T4F, LIPID #### [facility] [address] [place] [address] USASerum globulin measurement by calculation (mass/volume) Ordered By: Real Anton on 14-45-2960Pkxqenor (S) [Mass/Vol]2.9 g/dLNormal [facility], IncComment on above:Performed By: #### CBC, TSH3, CMP, T4F, LIPID #### [facility] [address] [place] [address] USASerum or plasma albumin/globulin mass ratioOrdered By: Real Anton on 73-33-6559Dorwydu/Globulin [Mass ratio]1.6 {ratio}NormalSelect Medical Specialty Hospital - [facility], IncComment on above:Performed By: #### CBC, TSH3, CMP, T4F, LIPID #### [facility] [address] [place] [address] USASerum or plasma anion gap determinationOrdered By: Real Anton on 35-07-0322Xclem gap [Moles/Vol]10.7 mmol/LNormal6.0-15.0[facility], IncComment on above:Performed By: #### CBC, TSH3, CMP, T4F, LIPID #### [facility] [address] [place] [address] USASerum or plasma total cholesterol/high density lipoprotein (HDL) cholesterol mass ratOrdered By: Real Anton on 04-09-2025 Cholesterol.total/Cholesterol in HDL [Mass ratio]3.0 {ratio}Normal<5.0[facility], IncComment on above:Performed By: #### CBC, TSH3, CMP, T4F, LIPID #### [facility] [address] [place] [id number] USASodium [Moles/volume] in Serum or PlasmaOrdered By: Real Anton on 93-73-6390Llltvl [Moles/Vol]139 mmol/HCqscps488-527BblclgfsiSelect Medical Specialty Hospital - [facility], IncComment on above:Performed By: #### CBC, TSH3, CMP, T4F, LIPID #### [facility] [address] [place] [id number] USAThyrotropin [Units/volume] in Serum or PlasmaOrdered By: Real Anton on 71-70-6307LDR Qn39.93 m[IU]/LHigh0.45-5.33[facility], IncComment on above:Result Comment: PERFORMED BY: [place] [address] PATHOLOGIST CHRISTMAS TREE GROWER GURU ALEXIS M.D.Performed By: #### CBC, TSH3, CMP, T4F, LIPID #### [facility] [address] [place] [address] USAThyroxine (T4) free [Mass/volume] in Serum or Plasma Ordered By: Real Anton on 83-89-0950Rrgw T4 [Mass/Vol]0.70 ng/dLNormal0.61-1.12 [facility], IncComment on above:Performed By: #### CBC, TSH3, CMP, T4F, LIPID #### [place] [address] USATriglyceride [Mass/volume] in Serum or PlasmaOrdered By: Real Anton on 19-26-0013Wdbqybnzwmgp [Mass/Vol]156 mg/dLHigh0-149[facility], IncComment on above:TRIG ATP III CLASSIFICATIONTRIG less than 150 mg/dL NormalTRIG 150-199 mg/dL Borderline highTRIG 200-500 mg/dL High TRIG greater than 500 mg/dL Very highStandard traceable to the Center for Disease Conrtrol and Prevention (CDC) test method.Urea nitrogen [Mass/volume] in Serum or PlasmaOrdered By: Real Anton on 39-95-5907Ydll nitrogen [Mass/Vol]14 mg/dLNormal7-25[facility], IncComment on above:Performed By: #### CBC, TSH3, CMP, T4F, LIPID #### [facility] [address] [id number] USAAlanine aminotransferase [Enzymatic activity/volume] in Serum or PlasmaOrdered By: Real Anton on 35-13-5316CPQ [Catalytic activity/Vol] 26 U/L7-52[facility], IncAlbumin [Mass/volume] in Serum or Plasma by Bromocresol green (BCG) dye binding methoOrdered By: Real Antno on 38-67-0521Cfbkqrg BCG dye [Mass/Vol]4.5 g/dL3.5-5.7FTwin City HospitalAlkaline phosphatase [Enzymatic activity/volume] in Serum or PlasmaOrdered By: Real Anton on 76-45-1626QQB [Catalytic activity/Vol]91 U/J09-858SjydyyezkSelect Medical Specialty Hospital - [facility], IncAspartate aminotransferase [Enzymatic activity/volume] in Serum or PlasmaOrdered By: Real Anton on 49-32-2171RXO [Catalytic activity/Vol] 15 U/T87-85TudtezuwrSelect Medical Specialty Hospital - [facility], IncBasophils Auto (Bld) [#/Vol]Ordered By: Real Anton on 48-09-2859Flmrvhple (Bld) [#/Vol]0.0 10*3/uL0.0-0.2FTwin City HospitalBasophils/100 WBC Auto (Bld)Ordered By: Real Anton on 76-80-1012Ajelvmpuu/100 WBC (Bld)0.3 %.[facility] Bilirubin.total [Mass/volume] in Serum or PlasmaOrdered By: Real Anton on 78-92-5875Vkuqevnel [Mass/Vol]0.5 mg/dL0.3-1.0[facility] Calcium [Mass/volume] in Serum or PlasmaOrdered By: Real Anton on 04-05-2024 Calcium [Mass/Vol]9.6 mg/dL8.6-10.3FTwin City HospitalCarbon dioxide, total [Moles/volume] in Serum or PlasmaOrdered By: Real Anton on 73-99-2801HQ5 [Moles/Vol]26.5 mmol/L21.0-31.0[facility] Chloride [Moles/volume] in Serum or PlasmaOrdered By: Real Anton on 04-05-2024 Chloride [Moles/Vol]104 mmol/R88-157WbkqnlpqpSelect Medical Specialty Hospital [facility], IncCholesterol [Mass/volume] in Serum or PlasmaOrdered By: Real Anton on 36-19-4718Lagjdixxera [Mass/Vol]230 mg/hAWgmh453-557XioqyrkrcSelect Medical Specialty Hospital - [facility], IncComment on above:Chol less than 200 mg/dl low riskChol 201-239 mg/dl borderline riskChol 240 mg/dl and greater high riskCholesterol in LDL Calc [Mass/Vol]Ordered By: Real Anton on 10-43-3342Eppycstnzjp in LDL [Mass/Vol]122 mg/dLHigh0-100[facility], IncComment on above:LDL ATP III CLASSIFICATIONLDL less than 100 mg/dL OptimalLDL 100-129 mg/dL Near or above lcxrqrgVIJ697-784 mg/dL Borderline highLDL 160-189 mg/dL HighLDL greater than 189 mg/dL Very high Cholesterol in VLDL Calc [Mass/Vol]Ordered By: Real Anton on 04-05-2024 Cholesterol in VLDL [Mass/Vol]33 mg/dLSelect Medical Specialty Hospital [facility], Inc Creatinine [Mass/volume] in Serum or PlasmaOrdered By: Real Anton on 04-05-2024 Creatinine [Mass/Vol]0.66 mg/dL0.60-1.20[facility] Eosinophils Auto (Bld) [#/Vol]Ordered By: Real Anton on 41-98-0141Lmprxmezocv (Bld) [#/Vol]0.1 10*3/uL0.0-0.45[facility], IncEosinophils/100 WBC Auto (Bld)Ordered By: Real Anton on 01-85-2234Lfpzgcxquty/100 WBC (Bld)1.1 %.[facility], IncErythrocyte distribution width Auto (RBC) [Ratio]Ordered By: Real Anton on 04-22-7220Blulktqfjzi distribution width (RBC) [Ratio]14.5 %11.9-15.3FTwin City HospitalGlobulin Calc (S) [Mass/Vol]Ordered By: Real Anton on 24-37-8428Esthhezg (S) [Mass/Vol]2.9 g/dL [facility], IncGlucose [Mass/volume] in Serum or PlasmaOrdered By: Real Anton on 98-45-3083Jzgkxsv [Mass/Vol]85 mg/kN48-232IxaytqqktSelect Medical Specialty Hospital - [facility], IncComment on above:ADA recommended reference rangeRandom Glucose Reference Range is dependent on time and content of last meal. Glucose of more than 200 mg/dL in a nonstressed, ambulatory subject supports the diagnosisof Diabetes Mellitus.Hematocrit Auto (Bld) [Volume fraction]Ordered By: Real Anton on 74-57-6128Xfchjylwue (Bld) [Volume fraction]40.4 %34.0-46.4FTwin City HospitalHemoglobin [Mass/volume] in BloodOrdered By: Real Anton on 45-25-8216Ctmvgqabea (Bld) [Mass/Vol]13.5 g/dL11.8-15.4FTwin City HospitalLeukocytes [#/volume] corrected for nucleated erythrocytes in Blood by Automated counOrdered By: Real Anton on 58-04-3335FRE corrected for nucl RBC Auto (Bld) [#/Vol]9.0 10*3/uL3.8-11.6FTwin City Hospital Lymphocytes Auto (Bld) [#/Vol]Ordered By: Real Anton on 31-28-8787Cscglkunscy (Bld) [#/Vol]2.5 10*3/uL1.00-4.8[facility], IncLymphocytes/100 WBC Auto (Bld)Ordered By: Real Anton on 78-44-6289Rcbpwsvzada/100 WBC (Bld)28.0 %.UK HealthcareH Auto (RBC) [Entitic mass]Ordered By: Real Anton on 89-33-3972QDM (RBC) [Entitic mass]30.3 pg24.7-34.3FTwin City HospitalMCHC Auto (RBC) [Mass/Vol]Ordered By: Real Anton on 08-31-4846NOJH (RBC) [Mass/Vol]33.4 g/dL32.0-35.0[facility], IncMCV Auto (RBC) [Entitic vol]Ordered By: Real Anton on 35-61-7598XUX (RBC) [Entitic vol]90.7 wY96-890BejopvkahSelect Medical Specialty Hospital - [facility], IncMonocytes Auto (Bld) [#/Vol]Ordered By: Real Anton on 52-72-5255Dunrxxyuj (Bld) [#/Vol]0.9 10*3/uL High0.0-0.8[facility] Medical CenterMonocytes/100 WBC Auto (Bld)Ordered By: Real Anton on 75-13-6231Iajfbuoko/100 WBC (Bld)9.5 %.[facility], IncNeutrophils Auto (Bld) [#/Vol]Ordered By: Real Anton on 04-05-2024 Neutrophils (Bld) [#/Vol]5.5 10*3/uL1.8-7.7FTwin City Hospital Neutrophils/100 WBC Auto (Bld)Ordered By: Real Anton on 04-05-2024 Neutrophils/100 WBC (Bld)61.1 %.[facility], IncNo Panel InformationOrdered By: Real Anton on 46-31-7888Dsrzoywnk GFR (CKD-EPI)> 60.0 mL/MinSelect Medical Specialty Hospital - [facility], IncPharmacy Creatinine Clearance (ChemN/A [facility], IncNucleated erythrocytes [Presence] in Blood by Automated countOrdered By: Real Anton on 62-26-8883Xktbczrnf RBC Auto Ql (Bld) 0.1 /100{WBC}0-0.5FTwin City HospitalPlatelet mean volume Auto (Bld) [Entitic vol]Ordered By: Real Anton on 71-15-4697Nqscmels mean volume (Bld) [Entitic vol]7.9 fL6.3-10.7FTwin City HospitalPlatelets Auto (Bld) [#/Vol]Ordered By: Real Anton on 37-74-4672Kwabyirig (Bld) [#/Vol]360 10*3/zS102-089NxgsxygqdSelect Medical Specialty Hospital - [facility], IncPotassium [Moles/volume] in Serum or PlasmaOrdered By: Real Anton on 20-04-9550Gcnuabptz [Moles/Vol]4.2 mmol/L 3.5-5.1FTwin City HospitalProtein [Mass/volume] in Serum or Plasma Ordered By: Real Anton on 44-89-9991Hmawtjr [Mass/Vol]7.4 g/dL6.4-8.9[facility], IncRBC Auto (Bld) [#/Vol]Ordered By: Real Anton on 53-63-7696NSI (Bld) [#/Vol]4.46 10*6/uL3.60-5.00[facility]-Fairhillerum or plasma albumin/globulin mass ratioOrdered By: Real Anton on 54-71-4288Cxvgiau/Globulin [Mass ratio]1.6 {ratio}[facility]-Fairhillerum or plasma anion gap determinationOrdered By: Real Anton on 40-74-5608Bjsdg gap [Moles/Vol]10.7 mmol/L6.0-15.0[facility]-Fairhillerum or plasma high density lipoprotein (HDL) cholesterol measurement Ordered By: Real Anton on 81-84-4055Ikwbkaqmmqf in HDL [Mass/Vol]75 mg/dL23-92 [facility], IncComment on above:HDL CHOL ATP-III CLASSIFICATION Cardiovascular RiskHDL > or equal to 60 mg/dL LOWHDL < 40 mg/dL HIGHSerum or plasma total cholesterol/high density lipoprotein (HDL) cholesterol mass ratOrdered By: Real Anton on 64-18-5219Irblfdibzgu.total/Cholesterol in HDL [Mass ratio]3.1 {ratio}<5.0[facility]-Fairhillodium [Moles/volume] in Serum or PlasmaOrdered By: Real Anton on 46-47-0984Wjnlkf [Moles/Vol]137 mmol/K538-481AdgccrlzxSelect Medical Specialty Hospital [facility], IncThyrotropin [Units/volume] in Serum or PlasmaOrdered By: Real Anton on 77-54-7571LCR Qn3.29 m[IU]/L0.45-5.33[facility], IncThyroxine (T4) free [Mass/volume] in Serum or PlasmaOrdered By: Real Anton on 54-17-3669Nray T4 [Mass/Vol]0.93 ng/dL0.61-1.12[facility], IncTriglyceride [Mass/volume] in Serum or PlasmaOrdered By: Real Anton on 52-60-9143Cwvujnhpuxca [Mass/Vol]167 mg/dLHigh0-149[facility], IncComment on above: TRIG ATP III CLASSIFICATIONTRIG less than 150 mg/dL NormalTRIG 150-199 mg/dL Borderline highTRIG 200-500 mg/dL High TRIG greater than 500 mg/dL Very highStandard traceable to the [facility] Disease Conrtrol and Prevention (CDC) test method.Urea nitrogen [Mass/volume] in Serum or PlasmaOrdered By: Real Anton on 36-87-0996Hmmh nitrogen [Mass/Vol]12 mg/dL7-25[facility], IncWBC Auto (Bld) [#/Vol]Ordered By: Real Anton on 30-12-7346ZKZ (Bld) [#/Vol]9.0 10*3/uL3.8-11.6FTwin City HospitalIGP,APTIMA HPV,AGE GDLNon 90-73-2443PIG GDLN ACOG TESTINGNote.NOMS HealthcareComment on above:TESTS RESULT FLAG UNITS REF RANGE LAB Clinician Provided Cytology Information Source.............Cervix;Endocervix No. of containers..01 ThinPrep Vial Age Algo ACOG Adriana... 30-65 01 FLAG LEGEND: L-Low Normal,H-High Normal,LL-Alert Low,HH-Alert High <-Panic Low,>-Panic High,A-Abnormal,AA-Critical Abnormal Performed at: 01 =[facility] [address] Jewell Amanda MD, HPV APTIMANegativeNegativeNOMS HealthcareComment on above:This nucleic acid amplification test detects fourteen high- risk HPV types (16,18,31,33,35,39,45,51,52,56,58,59,66,68) without differentiation. Performed at: =G - [facility] [id number] [employer]: Jewell Amanda MD, Phone: [phone] Performed at: [facility] [address] [place], [place] [id number] [employer]: Mayco eNil MD, Phone: [phone] IGP, APTIMA HPV, RFX 16/18,45Note.[facility] City HospitalComment on above:TESTS RESULT FLAG UNITS REF RANGE LAB DIAGNOSIS: 02 NEGATIVE FOR INTRAEPITHELIAL LESION OR MALIGNANCY. Specimen adequacy: 02 Satisfactory for evaluation. Endocervical and/or squamous metaplastic cells (endocervical component) are present. Performed by: 02 Andrew Fofana, Mri Technologist (ASCP) . 02 Note: Note 03 The Pap smear is a screening test designed to aid in the detection of premalignant and malignant conditions of the uterine cervix. It is not a diagnostic procedure and should not be used as the sole means of detecting cervical cancer. Both false-positive and false-negative reports do occur. Test Methodology: Note 03 This liquid based ThinPrep(R) pap test was screened with the use of an image guided system. HPV Genotype Reflex Note 02 Criteria not met, HPV Genotype not performed. FLAG LEGEND: L-Low Normal,H-High Normal,LL-Alert Low,HH-Alert High <-Panic Low,>-Panic High,A-Abnormal,AA-Critical Abnormal Performed at: 02 [facility] [address] [place] [address] Mayco Neil MD, 03 WB [facility] [address] [address] Jewell Amanda MD, BRUSH-SPATULA CERVIX ENDOCERVIX CLINISYNCNOMS HealthcareCOVID + FLU Quick Testingon 05-95-2667JTCV-CoV-2 (COVID- 19) RNA GIGI+probe Ql (Unsp spec)NegativeBeijing Suplet Technology Other COVID + FLU Quick TestingNegativeVirtualLogix Other Quick Strepon 08-03-2023S. pyogenes Org specific cx Ql (Throat)NegativeBeijing Suplet Technology Other Quick StrepBeijing [employer] Other RSVon 49-28-1743IJU Ag IA Ql (Unsp spec)NegativeBeijing [employer] Other Alanine aminotransferase [Enzymatic activity/volume] in Serum or PlasmaOrdered By: Benito Thomas on 21-37-4686EXD [Catalytic activity/Vol]44 U/L7-52[facility], IncAlbumin [Mass/volume] in Serum or Plasma by Bromocresol green (BCG) dye binding methoOrdered By: Benito Thomas on 44-17-1313Iuxfbzq BCG dye [Mass/Vol]3.8 g/dL3.5-5.7FTwin City HospitalAlkaline phosphatase [Enzymatic activity/volume] in Serum or PlasmaOrdered By: Benito Thomas on 80-74-4187VOG [Catalytic activity/Vol] 109 U/R61-669LsgqgjzjiSelect Medical Specialty Hospital - [facility], IncAspartate aminotransferase [Enzymatic activity/volume] in Serum or PlasmaOrdered By: Benito Thomas on 09-01-0847VBR [Catalytic activity/Vol]25 U/L77-15DcqwzucspSelect Medical Specialty Hospital - [facility], IncAutomated erythrocytes count in urine sediment (number/area)Ordered By: Benito Thomas on 44-17-9828FFP Auto (Urine sed) [#/Area]3-4 [HPF]0-4FTwin City HospitalAutomated leukocytes count in urine sediment (number/area)Ordered By: Benito Thomas on 68-37-4587KAE Auto (Urine sed) [#/Area]3-4 [HPF]0-4FTwin City HospitalBasophils Auto (Bld) [#/Vol]Ordered By: Benito Thomas on 36-26-4314Ixduepiyr (Bld) [#/Vol]0.0 10*3/uL0.0-0.2FTwin City HospitalBasophils/100 WBC Auto (Bld) Ordered By: Benito Thomas on 53-66-2410Inxzcqkhi/100 WBC (Bld)0.2 %.[facility], IncBilirubin Test strip Ql (U)Ordered By: Benito Thomas on 72-57-9992Gjymlpowy Ql (U)NegativeNegativeSelect Medical Specialty Hospital - [facility], Inc Bilirubin.direct [Mass/volume] in Serum or PlasmaOrdered By: Benito Thomas on 22-86-6257Bulpbfkon.direct [Mass/Vol]0.10 mg/dL0.03-0.18FTwin City HospitalBilirubin.total [Mass/volume] in Serum or PlasmaOrdered By: Benito Thomas on 37-49-3161Vvyrcblta [Mass/Vol]0.5 mg/dL0.3-1.0[facility], IncCOVID CepheidOrdered By: Benito Thomas on 41-20-0411ZGDO-CoV-2 (COVID-19) Ab IA QlNegativeNegativeSelect Medical Specialty Hospital [facility], IncComment on above:This is a duplicate [employer] Xpert Xpress CoV-2/Flu/RSV Plus RNA by RT-PCR result to be used for statistical tracking purpose only.SARS-CoV-2 (COVID-19) RNA GIGI+probe Ql (Unsp spec)[facility], IncCalcium [Mass/volume] in Serum or PlasmaOrdered By: Benito Thomas on 71-09-6847Oplnbma [Mass/Vol]8.6 mg/dL8.6-10.3FTwin City HospitalCarbon dioxide, total [Moles/volume] in Serum or PlasmaOrdered By: Benito Thomas on 05-23-2023 CO2 [Moles/Vol]22.7 mmol/L21.0-31.0[facility], IncChloride [Moles/volume] in Serum or PlasmaOrdered By: Benito Thomas on 05-23-2023 Chloride [Moles/Vol]102 mmol/K46-356GfjxphlefSelect Medical Specialty Hospital - [facility], IncColor Auto (U)Ordered By: Benito Thomas on 16-60-5331Aiefi (U)YellowYellowSelect Medical Specialty Hospital - [facility], IncCreatinine [Mass/volume] in Serum or PlasmaOrdered By: Benito Thomas on 31-48-3038Iisfdfbubj [Mass/Vol]0.76 mg/dL0.60-1.20[facility], IncEosinophils Auto (Bld) [#/Vol]Ordered By: Benito Thomas on 61-98-3968Gcsyacaixxd (Bld) [#/Vol]0.0 10*3/uL0.0-0.45[facility], IncEosinophils/100 WBC Auto (Bld)Ordered By: Benito Thomas on 86-86-2476Jekugjvyzwi/100 WBC (Bld)0.0 %.[facility] Erythrocyte distribution width Auto (RBC) [Ratio]Ordered By: Benito Thomas 63-88-7769Szlagxzakzz distribution width (RBC) [Ratio]13.9 %11.9-15.3FTwin City HospitalGlobulin Calc (S) [Mass/Vol]Ordered By: Benito Thomas 42-71-3807Gvvvindc (S) [Mass/Vol]3.3 g/dLSelect Medical Specialty Hospital - [facility], Inc Glucose [Mass/volume] in Serum or PlasmaOrdered By: Benito Thomas 90-31-9023Expljpd [Mass/Vol]139 mg/dJ81-319CdpogjezhSelect Medical Specialty Hospital - [facility], Inc Comment on above:ADA recommended reference rangeRandom Glucose Reference Range is dependent on time and content of last meal. Glucose of more than 200 mg/dL in a nonstressed, ambulatory subject supports the diagnosisof Diabetes Mellitus. HCG ( test) IA.rapid Ql (U)Ordered By: Benito Thomas on 54-75-0288FRT ( test) Ql (U)NegativeSelect Medical Specialty Hospital - Boardman, IncHematocrit Auto (Bld) [Volume fraction]Ordered By: Benito Thomas on 63-77-8251Bojpbodcox (Bld) [Volume fraction]38.3 %34.0-46.4FTwin City Hospital Hemoglobin [Mass/volume] in BloodOrdered By: Benito Thomas on 05-23-2023 Hemoglobin (Bld) [Mass/Vol]12.9 g/dL11.8-15.4FTwin City Hospital Ketones Auto test strip (U) [Mass/Vol]Ordered By: Benito Thomas on 05-23-2023 Ketones (U) [Mass/Vol]NegativeNegativeSelect Medical Specialty Hospital - [facility], Inc Laboratory - UrinalysisOrdered By: Benito Thomas on 78-78-0654Pybhntp casts LM Ql (Urine sed)0-8 [LPF]0-8[facility], IncLactate [Moles/volume] in Serum or PlasmaOrdered By: Benito Thomas on 05-23-2023 Lactate [Moles/Vol]1.7 mmol/L0.5-2.2FTwin City HospitalLeukocytes [#/volume] corrected for nucleated erythrocytes in Blood by Automated coun Ordered By: Benito Thomas on 41-18-5606JGF corrected for nucl RBC Auto (Bld) [#/Vol]17.7 10*3/uL3.8-11.6FTwin City HospitalLipase [Enzymatic activity/volume] in Serum or PlasmaOrdered By: Benito Thomas on 05-23-2023 Lipase [Catalytic activity/Vol]14.0 U/L11.0-82.0[facility], IncLymphocytes Auto (Bld) [#/Vol]Ordered By: Benito Thomas on 05-23-2023 Lymphocytes (Bld) [#/Vol]1.1 10*3/uL1.00-4.8[facility] Lymphocytes/100 WBC Auto (Bld)Ordered By: Benito Thomas on 05-23-2023 Lymphocytes/100 WBC (Bld)6.0 %.UK HealthcareH Auto (RBC) [Entitic mass]Ordered By: Benito Thomas on 31-54-7594ZBZ (RBC) [Entitic mass] 30.3 pg24.7-34.3FTwin City HospitalMCHC Auto (RBC) [Mass/Vol] Ordered By: Benito Thomas on 46-33-8142UKSN (RBC) [Mass/Vol]33.7 g/dL32.0-35.0 [facility], IncMCV Auto (RBC) [Entitic vol]Ordered By: Benito Thomas on 71-38-2051NKA (RBC) [Entitic vol]90.0 pE05-413DyftsiiboSelect Medical Specialty Hospital - [facility], IncMonocyte distribution width [Entitic volume] in Blood by Automated Ordered By: Benito Thomas on 56-56-5565Efblqjqo distribution width Auto (Bld) [Entitic vol]29.28 %0.00-20.00[facility], IncComment on above: For adults in ED, MDW > 20.0 may be associated with a higher risk of sepsis during the first 12 hrs of hospital admissionMonocytes Auto (Bld) [#/Vol]Ordered By: Benito Thomas on 10-30-5160Otzhyfxmu (Bld) [#/Vol]2.0 10*3/uL0.0-0.8 [facility], IncMonocytes/100 WBC Auto (Bld)Ordered By: Benito Thomas on 03-62-5931Wwmhzzfkw/100 WBC (Bld)11.4 %.[facility], IncNeutrophils Auto (Bld) [#/Vol]Ordered By: Benito Thomas on 05-23-2023 Neutrophils (Bld) [#/Vol]14.6 10*3/uL1.8-7.7FTwin City Hospital Neutrophils/100 WBC Auto (Bld)Ordered By: Benito Thomas on 05-23-2023 Neutrophils/100 WBC (Bld)82.4 %.[facility], IncNitrite Test strip Ql (U)Ordered By: Benito Thomas on 90-81-9151Ppwhkli Ql (U)Negative NegativeSelect Medical Specialty Hospital - [facility], IncNo Panel InformationOrdered By: Benito Thomas on 68-17-6371Xmrrmwmry GFR (CKD-EPI)> 60.0 mL/MinSelect Medical Specialty Hospital - [facility], IncPharmacy Creatinine Clearance (Marg839.07[facility], IncNucleated erythrocytes [Presence] in Blood by Automated count Ordered By: Benito Thomas on 67-35-2231Bnfrzreut RBC Auto Ql (Bld)0.1 /100{WBC}0-0.5FTwin City HospitalPlatelet mean volume Auto (Bld) [Entitic vol]Ordered By: Benito Thomas on 39-86-7003Ffkahlli mean volume (Bld) [Entitic vol]7.9 fL6.3-10.7FTwin City HospitalPlatelets Auto (Bld) [#/Vol]Ordered By: Benito Thomas on 13-78-1529Pxinmaxaw (Bld) [#/Vol]247 10*3/vN973-065JaqbgguuvSelect Medical Specialty Hospital - [facility], IncPotassium [Moles/volume] in Serum or PlasmaOrdered By: Benito Thomas on 55-34-0823Wnmcpchae [Moles/Vol]3.4 mmol/L3.5-5.1FTwin City HospitalProtein Auto test strip (U) [Mass/Vol]Ordered By: Benito Thomas on 38-85-6294Bqlwetw (U) [Mass/Vol] NegativeNegativeSelect Medical Specialty Hospital - [facility], IncProtein [Mass/volume] in Serum or PlasmaOrdered By: Benito Thomas on 24-93-8488Zkidhwk [Mass/Vol]7.1 g/dL 6.4-8.9[facility], IncRBC Auto (Bld) [#/Vol]Ordered By: Benito Thomas on 04-49-7304XBF (Bld) [#/Vol]4.26 10*6/uL3.60-5.00[facility]Fairhillerum or plasma albumin/globulin mass ratioOrdered By: Benito Thomas on 56-95-3010Qvrvsdh/Globulin [Mass ratio]1.2 {ratio}[facility]-Fairhillerum or plasma anion gap determinationOrdered By: Benito Thomas on 10-99-9304Kxelk gap [Moles/Vol]11.7 mmol/L6.0-15.0[facility]-Fairhillerum or plasma non-glucuronidated bilirubin measurement (mass/volume) Ordered By: Benito Thomas 10-96-1988Dabanuzsv.indirect [Mass/Vol]0.4 mg/dL [facility]-Fairhillodium [Moles/volume] in Serum or PlasmaOrdered By: Benito Thomas 81-77-5226Impssw [Moles/Vol]133 mmol/V257-117MkhtwtvvnSelect Medical Specialty Hospital - Cleveland-Fairhillpecific gravity Auto test strip (U) [Rel density]Ordered By: Benito Thomas 42-68-5199Tswsbvbh gravity (U) [Rel density]1.013 1.001-1.030[facility]-Fairhillquamous epithelial cells detection in urine sediment by light microscopyOrdered By: Benito Thomas on 05-23-2023 Epithelial cells.squamous LM Ql (Urine sed)3-4 [HPF]0-2FTwin City HospitalThyrotropin [Units/volume] in Serum or PlasmaOrdered By: Benito Thomas 18-68-2167NYK Qn14.49 m[IU]/L0.45-5.33[facility], IncThyroxine (T4) free [Mass/volume] in Serum or PlasmaOrdered By: Benito Thomas 08-70-5703Fdck T4 [Mass/Vol]0.71 ng/dL0.61-1.12[facility], IncUrea nitrogen [Mass/volume] in Serum or PlasmaOrdered By: Benito Thomas 26-05-9481Fdbv nitrogen [Mass/Vol]8 mg/dL7-25[facility], IncUrine bacteria detection by automated methodOrdered By: Benito Thomas 96-68-1070Nnfipdam Auto Ql (U)None seenNone SeenSelect Medical Specialty Hospital - [facility], IncUrine clarity by refractometry automatedOrdered By: Benito Thomas 21-11-2430Lyirask Refractometry automated (U)ClearClearFTwin City HospitalUrine glucose measurement by automated test strip (mass/volume)Ordered By: Benito Thomas 81-05-4233Enygkoc Auto test strip (U) [Mass/Vol]Normal mg/dLNormalToledo Hospital Medical CenterUrine hemoglobin detection by automated test stripOrdered By: Benito Thomas on 70-92-3226Uvulzhkjkq Auto test strip Ql (U)TraceNegativeSelect Medical Specialty Hospital - [facility], IncUrine leukocyte esterase detection by automated test stripOrdered By: Benito Thomas on 96-19-3637Ykjetfzvu esterase Auto test strip Ql (U) NegativeNegativeSelect Medical Specialty Hospital - [facility], IncUrobilinogen Auto test strip (U) [Mass/Vol]Ordered By: Benito Thomas on 21-42-1554Wktltfohlttm (U) [Mass/Vol]Normal mg/dLNormUniversity Hospitals Geneva Medical CenterWBC Auto (Bld) [#/Vol]Ordered By: Benito Thomas on 92-79-2846JJK (Bld) [#/Vol]17.7 10*3/uL 3.8-11.6FTwin City HospitalpH Auto test strip (U)Ordered By: Benito Thomas on 96-46-9577uC (U)6.0 [pH]5.0-9.0[facility], IncUrine 10 SGon 16-66-8253Arecoan DL <= 20 mg/L (U) [Mass/Vol]NegativeNoHaven Behavioral [facility] of [facility] wes[employer].tv Other pH (U)7.0 [pH][facility] Other urine 10 SGNegativePetersburg [facility] Other urine 10 SG1.025[facility] Other urine 10 SG0.2Npershing memorial hospital [facility] Other QUANTIFERON TB GOLD PLUSon 76-28-5820VpdujiSUGUD [facility] Tri[facility] Medical CenterComment on above:Result Comment: QuantiFERON-TB Gold Plus is a qualitative indirect test for M tuberculosis infection (including disease) and is intended for use in conjunction with risk assessment, radiography, and other medical and diagnostic evaluations. The QuantiFERON-TB Gold Plus result is determined by subtracting the Nil value from either TB antigen (Ag) value. The Mitogen tube serves as a control for the test.Performed By: #### QNTTB #### [facility] [address] [place] [address] Dr. Farrukh Batres IncubationIncubation performed.NormalOhiohealth Berger HospitalComment on above:Performed By: #### QNTTB #### [facility] [address] [place] [address] Dr. Farrukh Batres Mitogen Value>10.00NormalThe [facility] CenterComment on above:Performed By: #### QNTTB #### [facility] [address] [place] [address] Dr. Farrukh Batres Nil Value0.11 IU/mLNGeorgetown Behavioral HospitalComment on above:Performed By: #### QNTTB #### [facility] [address] [place] [address] Dr. Farrukh Batres TB1 Ag Value0.13 IU/mLNGeorgetown Behavioral Hospital Comment on above:Performed By: #### QNTTB #### [facility] [address] [place] [address] Dr. Farrukh Batres TB2 Ag Value0.09 IU/mLNGeorgetown Behavioral Hospital Comment on above:Performed By: #### QNTTB #### [facility] [address] [place] [address] Dr. Farrukh Batres-TB Gold PlusNegativeNormalNegativeOhiohealth Berger HospitalComment on above:Result Comment: No response to M tuberculosis antigens detected. Infection with M tuberculosis is unlikely, but high risk individuals should be considered for additional testing (ATS/IDSA/CDC Clinical Practice Guidelines, 2017). The reference range is an Antigen minus Nil result of <0.35 IU/mL. Chemiluminescence immunoassay methodologyPerformed By: #### QNTTB #### [facility] [address] [place] [address] Dr. Farrukh Santillan B SURFACE ANTIBODY, QUANTon 16-82-3106Wbqolfxlr B Surf AB Caatn093.7 mIU/mLNormalImmunity>9.9Ohiohealth Berger HospitalComment on above: Result Comment: Status of Immunity Anti-HBs Level Inconsistent with Immunity 0.0 - 9.9 Consistent with Immunity >9.9Performed By: #### HEPBSRF #### [facility] [address] [place] [address] Dr. Farrukh Birch IMMUNITYon 18-95-3750Epujk Abs, IgG<9.0Critically lowImmune >10.9The [facility] CenterComment on above:Result Comment: Negative <9.0 Equivocal 9.0 - 10.9 Positive >10.9 A positive result generally indicates past exposure to Mumps virus or previous vaccination.Performed By: #### MMRIMMU #### [facility] [address] [place] [address] Dr. Farrukh Browning Antibodies, IgG1.14 indexNormalImmune >0.99The Galion Hospitalment on above:Result Comment: Non-immune <0.90 Equivocal 0.90 - 0.99 Immune >0.99Performed By: #### MMRIMMU #### [facility] [address] [place] [address] Dr. Farrukh Ramos Ab, IgG55.6 AU/mLNormalImmune >16.4The [facility] Comment on above:Result Comment: Negative <13.5 Equivocal 13.5 - 16.4 Positive >16.4 Presence of antibodies to Rubeola is presumptive evidence of immunity except when acute infection is suspected.Performed By: #### MMRIMMU #### [facility] [address] [place] [address] Dr. Farrukh PerezVARICELLA IGG ABon 69-11-2019Wvjizuzzn Zoster AcB122 indexNormal Immune >165The Galion Hospitalment on above:Result Comment: Negative <135 Equivocal 135 - 165 Positive >165 A positive result generally indicates exposure to the pathogen or administration of specific immunoglobulins, but it is not indication of active infection or stage of disease.Performed By: #### VARCEL #### [facility] [address] [place] [address] Dr. Farrukh PerezAutomated blood platelet count (count/volume)Ordered By: Real Anton on 69-53-9547Tfwciiufd (Bld) [#/Vol]394 10*3/uLCgolki298-088 10*3/uL [facility], IncBasophils Auto (Bld) [#/Vol]Ordered By: Real Anton on 27-02-5791Iofgxawuq (Bld) [#/Vol]0.1 10*3/uL0.0-0.2FTwin City HospitalBasophils/100 WBC Auto (Bld)Ordered By: Real Anton on 05-04-2022 Basophils/100 WBC (Bld)1.1 %.[facility], IncBlood hemoglobin measurement (mass/volume)Ordered By: Real Anton on 24-49-4858Baczxdjlou (Bld) [Mass/Vol]13.7 g/dL11.8-15.4FTwin City HospitalBlwinona community memorial hospital leukocytes automated count (number/volume)Ordered By: Real Anton on 87-32-3596SLV (Bld) [#/Vol]7.8 10*3/uL4.5-11.0[facility], IncBody fluid albumin measurement (mass/volume)Ordered By: Real Anton on 83-94-3473Kebxoli (Body fld) [Mass/Vol]4.1 g/dL3.2-5.5FTwin City HospitalCholesterol [Mass/volume] in Serum or PlasmaOrdered By: Real Anton on 71-19-5331Mdhoiqigoqk [Mass/Vol]200 mg/lQIwtoqd669-116 mg/dLSelect [facility]ty [facility], IncComment on above:Chol less than 200 mg/dl low riskChol 201-239 mg/dl borderline riskChol 240 mg/dl and greater high riskCholesterol in LDL Calc [Mass/Vol]Ordered By: Real Anton on 94-04-4226Cuvanbcgyxe in LDL [Mass/Vol]106 mg/dL0-100[facility], IncComment on above:LDL ATP III CLASSIFICATIONLDL less than 100 mg/dL OptimalLDL 100-129 mg/dL Near or above owxccibSAN817-348 mg/dL Borderline highLDL 160-189 mg/dL HighLDL greater than 189 mg/dL Very high Cholesterol in VLDL Calc [Mass/Vol]Ordered By: Real Anton on 05-04-2022 Cholesterol in VLDL [Mass/Vol]21 mg/dLSelect Medical Specialty Hospital [facility], IncComplete Blood Count Auto Diffon 98-30-0581Alhjegrrx (Bld) [#/Vol]0.066602855 10*3/uL Normal0.0-0.2 10*3/[employer] Other Basophils/100 WBC (Bld)1.100 %. %[employer] Other Eosinophils (Bld) [#/Vol]0.834209553 10*3/uLNormal0.0- 0.45 10*3/[employer] Other Eosinophils/100 WBC (Bld)0.700 %. %[employer] Other Erythrocyte distribution width (RBC) [Ratio]14.300 % Zstryb96.9-15.3 %[employer] Other Hematocrit (Bld) [Volume fraction]41.100 %Hdmatn45.0- 46.4 %[employer] Other Hemoglobin (Bld) [Mass/Vol]13.822497 g/bKPimnap41.8- 15.4 g/dLNoVirtualLogix Other Lymphocytes (Bld) [#/Vol]2.225554534 10*3/uLNormal 1.00-4.8 10*3/[employer] Other Lymphocytes/100 WBC (Bld)27.300 %. %[employer] Other MCH (RBC) [Entitic mass]30.8000 igXevpyi64.7-34.3 pg [employer] Other MCV (RBC) [Entitic vol]92.0000 bWQvzanu08-559 fLBeijing [employer] Other Monocytes (Bld) [#/Vol]0.888143576 10*3/uLNormal0.0- 0.8 10*3/[employer] Other Monocytes/100 WBC (Bld)9.000 %. %[employer] Other Neutrophils (Bld) [#/Vol]4.738798359 10*3/uLNormal1.8- 7.7 10*3/[employer] Other Neutrophils/100 WBC (Bld)61.900 %. %[employer] Other Platelet mean volume (Bld) [Entitic vol]8.2000 fL Normal6.3-10.7 fLNotis.tv [employer] Other RBC (Bld) [#/Vol]4.3927407422 10*6/uLNormal3.60-5.00 10*6/[employer] Other WBC (Bld) [#/Vol]7.931183831 10*3/uLNormal3.8-11.6 10*3/[employer] Other Complete Blood Count Auto Diff7.8 10*3/uLNormal4.5- 11.0 10*3/[employer] Other Complete Blood Count Auto Diff33.4 g/bKOlvlmu98.0-35.0 g/dLBeijing [employer] Other Complete Blood Count Auto Diff0.1 %Normal0-0.5 %[employer] Other Comprehensive Metabolic Panelon 10-25-4055Snhhlzb [Mass/Vol]4.456244 g/dLNormal3.2-5.5 g/dLBe[employer] Other ALT [Catalytic activity/Vol]24 U/TOpyvcn09-94 U/LNpershing memorial hospital [employer] Other Bilirubin [Mass/Vol]0.6823335 mg/dLNormal0.3-1.2 mg/dL [facility] [employer] Other Calcium [Mass/Vol]9.1042612 mg/dLNormal8.2-10.2 mg/dL [facility] [employer] Other CO2 [Moles/Vol]26.75007335 mmol/CKhgodc82.0-30.0 mmol/[facility] [employer] Other Creatinine [Mass/Vol]0.25591198 mg/dLNormal0.44-1.03 mg/dLNowright memorial hospital [employer] Other Potassium [Moles/Vol]4.18446237 mmol/LNormal3.5-5.1 mmol/[facility] [employer] Other Protein [Mass/Vol]7.589819 g/dLNormal6.1-7.9 g/dLNowright memorial hospital [employer] Other Comprehensive Metabolic Panel> 60[place] [employer] Other Comprehensive Metabolic Panel3.0 g/dLPetersburg [employer] Other Creatinine and Glomerular filtration rate.predicted panel (S/P/Bld)Ordered By: Real Anton on 31-48-0692Idtsujwzex [Mass/Vol]0.67 mg/dL0.44-1.03[facility], IncEosinophils Auto (Bld) [#/Vol] Ordered By: Real Anton on 14-41-5911Sssswpdpioc (Bld) [#/Vol]0.1 10*3/uL0.0-0.45 [facility], IncEosinophils/100 WBC Auto (Bld)Ordered By: Real Anton on 30-98-9813Cbmrvkeueau/100 WBC (Bld)0.7 %.[facility], IncErythrocyte distribution width Auto (RBC) [Ratio]Ordered By: Real Anton on 57-13-2568Aeoaznovidt distribution width (RBC) [Ratio]14.3 %11.9-15.3FTwin City HospitalEstimated glomerular filtration rate (GFR) non- AmericanOrdered By: Real Anton on 54-13-2804GDG/1.73 sq M.predicted among non- blacks MDRD (S/P/Bld) [Vol rate/Area]> 60 mL/MinSelect Medical Specialty Hospital - [facility], IncFree T4 (Free Thyroxine)on 26-89-1128Thxw T4 [Mass/Vol]1.61774750 ng/dL High0.61-1.12 ng/dLPetersburg [employer] Other Globulin Calc (S) [Mass/Vol]Ordered By: Real Anton on 96-16-2684Kionkzrf (S) [Mass/Vol]3.0 g/dLSelect Medical Specialty Hospital [facility], Inc Hematocrit Auto (Bld) [Volume fraction]Ordered By: Real Anton on 05-04-2022 Hematocrit (Bld) [Volume fraction]41.1 %34.0-46.4FTwin City HospitalLaboratory - Hematology and Cell countsOrdered By: Real Anton on 14-78-3537Eydyzixjo RBC/100 WBC (Bld) [Ratio]0.1 %0-0.5FTwin City HospitalLipid Panelon 01-71-0931Wsjrecwhxux in LDL Elph Qn106 mg/dLHigh0- 100 mg/dLNoNotis.tv [employer] Other Lipid Zvfdw764 mg/wAGlplsg00-072 mg/dLNoVirtualLogix Other Lipid Panel21 mg/dLNoVirtualLogix Other Lymphocytes Auto (Bld) [#/Vol]Ordered By: Real Anton on 15-05-4723Mfrkkktlzcj (Bld) [#/Vol]2.1 10*3/uL1.00-4.8[facility], IncLymphocytes/100 WBC Auto (Bld)Ordered By: Real Anton on 05-04-2022 Lymphocytes/100 WBC (Bld)27.3 %.UK HealthcareH Auto (RBC) [Entitic mass]Ordered By: Real Anton on 50-67-4734TUI (RBC) [Entitic mass]30.8 pg24.7-34.3FTwin City HospitalMCHC Auto (RBC) [Mass/Vol]Ordered By: Real Anton on 93-96-4777LNES (RBC) [Mass/Vol]33.4 g/dL32.0-35.0[facility], IncMCV Auto (RBC) [Entitic vol]Ordered By: Real Anton on 76-04-8088NFF (RBC) [Entitic vol]92.0 wE32-807TnelvqsliSelect Medical Specialty Hospital - [facility], Inc Monocytes Auto (Bld) [#/Vol]Ordered By: Real Anton on 69-46-9411Ufgfexyje (Bld) [#/Vol]0.7 10*3/uL0.0-0.8[facility], IncMonocytes/100 WBC Auto (Bld)Ordered By: Real Anton on 92-52-0480Sfruvkafh/100 WBC (Bld)9.0 %.[facility], IncNeutrophils Auto (Bld) [#/Vol]Ordered By: Real Anton on 74-09-4146Xriqnhpovis (Bld) [#/Vol]4.9 10*3/uL1.8-7.7FTwin City HospitalNeutrophils/100 WBC Auto (Bld)Ordered By: Real Anton on 05-04-2022 Neutrophils/100 WBC (Bld)61.9 %.[facility], IncNo Panel InformationOrdered By: Real Anton on 99-01-4197Gkkyiqtvg GFR ()> 60 mL/MinSelect Medical Specialty Hospital - [facility], IncComment on above:GFR estimated reference range: According to KDOQI guidelines, <60 ml/min/1.73m2 is sufficient todiagnose a patient with chronic kidney disease.Pharmacy Creatinine Clearance (ChemN/[facility] HospitalPlatelet mean volume Auto (Bld) [Entitic vol]Ordered By: Real Anton on 15-61-8345Rlsnyivq mean volume (Bld) [Entitic vol]8.2 fL6.3-10.7FTwin City HospitalProtein [Mass/volume] in Serum or PlasmaOrdered By: Real Anton on 72-62-3192Trjjffu [Mass/Vol]7.1 g/dL6.1-7.9[facility], IncRBC Auto (Bld) [#/Vol] Ordered By: Real Anton on 03-65-6419OQX (Bld) [#/Vol]4.46 10*6/uL3.60-5.00 [facility]-Fairhillerum or plasma alanine aminotransferase measurement without P-5'-P (enzymatic activiOrdered By: Real Anton on 05-04-2022 ALT No additional P-5'-P [Catalytic activity/Vol]24 U/N11-83GkictuvigSelect Medical Specialty Hospital - Cleveland-Fairhillerum or plasma albumin/globulin mass ratioOrdered By: Real Anton on 82-77-6662Cdkwebr/Globulin [Mass ratio]1.4 {ratio}[facility]-Fairhillerum or plasma alkaline phosphatase measurement (enzymatic activity/volume)Ordered By: Real Anton on 49-20-6810JET [Catalytic activity/Vol] 85 U/KEjcksj52-88 U/[facility] Companyerum or plasma anion gap determinationOrdered By: Real Anton on 89-44-0080Hqlpi gap [Moles/Vol]12.1 mmol/L6.0-15.0[facility]-Fairhillerum or plasma aspartate aminotransferase measurement (enzymatic activity/volume)Ordered By: Real Anton on 27-90-1744NKW [Catalytic activity/Vol]17 U/TEnnkha29-75 U/[facility] Companyerum or plasma calcium measurement (mass/volume)Ordered By: Real Anton on 37-92-2844Ucikrjc [Mass/Vol]9.7 mg/dL8.2-10.2FUniversity Hospitals Portage Medical Centererum or plasma chloride measurement (moles/volume)Ordered By: Real Anton on 77-68-0165Gpomlmxl [Moles/Vol]102 mmol/OFikzyn56-039 mmol/[facility] Companyerum or plasma glucose measurement (mass/volume)Ordered By: Real Anton on 91-10-0429Mrhqjkj [Mass/Vol]88 mg/hRJzrjov22-022 mg/dLSelect Medical Specialty [facility], IncComment on above:ADA recommended reference rangeRandom Glucose Reference Range is dependent on time and content of last meal. Glucose of more than 200 mg/dL in a nonstressed, ambulatory subject supports the diagnosisof Diabetes Mellitus.Serum or plasma high density lipoprotein (HDL) cholesterol measurementOrdered By: Real Anton on 70-88-7306Huqupzfrvcr in HDL [Mass/Vol]73 mg/zDLqvuyq17-15 mg/dLSelect Medical Specialty Hospital [facility], IncComment on above:HDL CHOL ATP-III CLASSIFICATION Cardiovascular RiskHDL > or equal to 60 mg/dL LOWHDL < 40 mg/dL HIGHSerum or plasma potassium measurement (moles/volume) Ordered By: Real Anton on 80-75-9602Dfxijnkoo [Moles/Vol]4.1 mmol/L3.5-5.1 [facility]-Fairhillerum or plasma sodium measurement (moles/volume)Ordered By: Real Anton on 26-82-6741Rdzyyp [Moles/Vol]136 mmol/L Sxbqoi428-321 mmol/[facility] Companyerum or plasma total bilirubin measurement (mass/volume)Ordered By: Real Anton on 68-81-6478Yzfztwhtz [Mass/Vol]0.7 mg/dL0.3-1.2FUniversity Hospitals Portage Medical Centererum or plasma total carbon dioxide measurement (moles/volume)Ordered By: Real Anton on 08-30-9356NE0 [Moles/Vol]26.0 mmol/L22.0-30.0[facility] Serum or plasma total cholesterol/high density lipoprotein (HDL) cholesterol mass ratOrdered By: Real Anton on 18-65-8862Njapekmqnyv.total/Cholesterol in HDL [Mass ratio]2.7 {ratio}<5.0[facility]-Fairhillerum or plasma urea nitrogen measurement (mass/volume)Ordered By: Real Anton on 05-08-4139Vvla nitrogen [Mass/Vol]8 mg/dLLow9-23 mg/dLSelect Medical Specialty Hospital [facility], IncTSH DL <= 0.005 mIU/L QnOrdered By: Real Anton on 75-29-8657SYN Qn2.47 m[IU]/L0.45-5.33 [facility], IncThyroid Stimulating Hormoneon 87-12-8280STE Qn 2.30373029462 m[IU]/LNormal0.45-5.33 u[iU]/mLNpershing memorial hospital [employer] Other Thyroxine (T4) free [Mass/volume] in Serum or Plasma Ordered By: Real Anton on 84-06-4232Avvo T4 [Mass/Vol]1.15 ng/dL0.61-1.12 [facility], IncTriglyceride [Mass/volume] in Serum or Plasma Ordered By: Real Anton on 14-55-1905Hplsyscqrxaq [Mass/Vol]106 mg/nW91-630 [facility], IncComment on above:TRIG ATP III CLASSIFICATIONTRIG less than 150 mg/dL NormalTRIG 150-199 mg/dL Borderline highTRIG 200-500 mg/dL High TRIG greater than 500 mg/dL Very highStandard traceable to the Center for Disease Conrtrol and Prevention (CDC) test method. Urine 10 SGon 04-30-3866Pdaperq DL <= 20 mg/L (U) [Mass/Vol]NegativeNort [employer] Other pH (U)7.0 [pH][place] [employer] Other Urine 10 SGNegativePetersburg [employer] Other Urine 10 SG1.015[facility] [employer] Other Urine 10 SG0.2Npershing memorial hospital [employer] Other COVID Quick Testingon 96-80-2544UyjhzuLheeqblbFxqay [employer] Other Consenton 67-70-9954Qfcoqyj [id number]#1.00CD:127[facility] Vital Signs Date TimeVital SignValuePerforming CejxxdsgcIkjbsmpz26-87-3319 07:36-0400Body .48 cmReal Cabreras DO Work Phone: [facility]09-10-2025 07:36-0400 Body mass index (BMI) [Ratio]38.5 kg/r5Jstse Kuns DO Work Phone: [facility]09-10-2025 07:36-0400 Body kkmuyh84.7 kgBrydeon Cabreras DO Work Phone: [facility]09-10-2025 07:36-0400 Diastolic blood mm[Hg]Real Cabreras DO Work Phone: [facility]09-10-2025 07:36-0400 Heart rate84 /minReal Cabreras DO Work Phone: [facility]09-10-2025 07:36-0400 Respiratory rate18 /minReal Cabreras DO Work Phone: [facility]09-10-2025 07:36-0400 SaO2% (BldA) [Mass fraction]97 %Real Cabreras DO Work Phone: [facility]09-10-2025 07:36-0400 Systolic blood apgjvdro081 mm[Hg]Real Cabreras DO Work Phone: [facility]09-06-2024 07:59-0400 Body gwanzp243.48 cmDO Real Cabreras Work Phone: [facility]09-06-2024 07:59-0400 Body mass index (BMI) [Ratio]37.8 kg/m2DO Real Kuns Work Phone: [facility]09-06-2024 07:59-0400 Body .89 kgDO Real Cabreras Work Phone: [facility]09-06-2024 07:59-0400 Diastolic blood mm[Hg]DO Real Anton Work Phone: [facility]09-06-2024 07:59-0400 Heart rate78 /Mara Anton Work Phone: [facility]09-06-2024 07:59-0400 Respiratory rate16 /minDO Real Anton Work Phone: [facility]09-06-2024 07:59-0400 SaO2% (BldA) [Mass fraction]99 %DO Real Anton Work Phone: [facility]09-06-2024 07:59-0400 Systolic blood cdowtzrh425 mm[Hg]DO Realdeon Anton Work Phone: [facility]08-20-2024 09:21-0400 Body inuitn309.4 cmAtamy Maurice PA Work Phone: [facility] ChildrenZcfdrgbpxp00-56-8048 09:21-0400Body mass index (BMI) [Ratio]39.86 kg/m2Nora Maurice PA Work Phone: [facility] ChildrenElempoexgv24-44-3589 09:21-0400Body cnyftd13.59 kgNora Maurice PA Work Phone: [facility] ChildrenQpysvrzbra94-88-9086 09:21-0400Diastolic blood wbzwjyft47 mm[Hg]Nora Maurice PA Work Phone: [facility] ChildrenOqfdhkhozd94-37-2313 09:21-0400Systolic blood drtwbemt029 mm[Hg]Nora Maurice PA Work Phone: [facility] ChildrenIqhosehhno98-48-4894 17:40-0400Body temperature 99.3 [degF]DO Real Sloane Work Phone: [facility]10-24-2023 17:40-0400 Diastolic blood gmmmenjn27 mm[Hg]DO Realdeon Anton Work Phone: [facility]10-24-2023 17:40-0400 Heart kefy953 /minDO Real Anton Work Phone: [facility]10-24-2023 17:40-0400 Respiratory rate16 /minDO Real Anton Work Phone: [facility]10-24-2023 17:40-0400 SaO2% (BldA) [Mass fraction]100 %DO Real Anton Work Phone: [facility]10-24-2023 17:40-0400 Systolic blood xftuavgk367 mm[Hg]DO Real Anton Work Phone: [facility]10-24-2023 11:52-0400 Body aumxwx565.48 cmDO Real Anton Work Phone: [facility]10-24-2023 11:52-0400 Body ruqege02.85 kgDO Real Anton Work Phone: [facility]08-01-2023 13:30-0400 Body dtfyby893.4 cmReal Anton Other [employer] Other 08-01-2023 13:30-0400Diastolic blood cevfdjph32 mm[Hg] Realdeon Cabreranitesh Other [employer] Other 08-01-2023 13:30-0400Respiratory rate16 /minReal Anton Other [employer] Other 08-01-2023 13:30-8610ImE9% (BldA) [Mass fraction]98 % Real Ricknitesh Other [employer] Other 08-01-2023 13:30-0400Systolic blood pbikfsuc178 mm[Hg] Real Anton Other [employer] Other 10-05-2022 08:45-0400Body zpywqt977.4 cmVasquezdeon Cabreranitesh Other [employer] Other 10-05-2022 08:45-0400Body mass index (BMI) [Ratio] 40.31 kg/u9Xsfrb Sloane Other [employer] Other 10-05-2022 08:45-0400Body .62 kgVasquezdeon Anton Other [employer] Other 10-05-2022 08:45-0400Diastolic blood tzklsjdy35 mm[Hg] Real Sloane Other [employer] Other 10-05-2022 08:45-0400Respiratory rate18 /minBrydeon Anton Other [employer] Other 10-05-2022 08:45-6082SvM0% (BldA) [Mass fraction]99 % Real Sloane Other [employer] Other 10-05-2022 08:45-0400Systolic blood mpvgqeea473 mm[Hg] Real Anton Other [employer] Other 05-31-2022 16:00-0400Body yidvyl515.4 cmReal Anton Other [employer] Other 05-31-2022 16:00-0400Body mass index (BMI) [Ratio] 40.23 kg/p7NzzmfReal Anton Other [employer] Other 05-31-2022 16:00-0400Body sfhlew14.44 kgReal Anton Other [employer] Other 05-31-2022 16:00-0400Diastolic blood oygjdsbb91 mm[Hg] Real Anton Other [employer] Other 05-31-2022 16:00-0400Respiratory rate18 /minReal Anton Other [employer] Other 05-31-2022 16:00-1224AiD0% (BldA) [Mass fraction]98 % Real Anton Other [employer] Other 05-31-2022 16:00-0400Systolic blood mm[Hg] Real Anton Other [employer] Other Encounters Encounter DateEncounter TypeCare ProviderFacilityStart: 78-12-2729Lbnchlvqz for general adult medical examination without abnormal findingsReal Perales [facility]placed By [facility] GroupStart: 94-46-7523Isj-patient / Non-visitGeorge Rohan Ramachandran MD-[facility] Work Phone: Start: 04-09-2025 End: 62-29-1941fhbxdxunocWcihg Kuns DO Work Phone: [facility] Work Phone: Start: 04-09-2025 End: 13-51-4224Hplttlc encounter procedureReal Alvarado [facility] [place] Work Phone: Start: 04-09-2025 End: 68-36-9065Lfvwifw encounter statusReal Alvarado [facility] Hospitaltart: 04-05-2024 End: 48-53-4434gylsnrphfwAW Real Anton Work Phone: [facility] Work Phone: Start: 04-05-2024 End: 10-79-1624Lssjfye encounter procedureDO Real Anton Work Phone: Replaced By [facility] [place] Work Phone: Start: 03-19-2024 End: 71-56-7829Garawx flowsheetNora CROWE Work Phone: [facility] OBStart: 03-19-2024 End: 39-11-6774Jotbhj flowsheetNora Maurice PA Work Phone: [facility] OBStart: 03-19-2024 End: 44-02-2686Mdsurruwj Result EncounterNora CROWE Work Phone: [facility] External Department UnsolicitedStart: 03-19-2024 End: 23-28-4937Aklwjvf encounter procedureAmy Ese PA Work Phone: [facility] Work Phone: Start: 03-19-2024 End: 45-34-8125Afytklij preventive med est patient 18-39 yrsAmy Ese CROWE Work Phone: [facility] OBComment on above:Well woman exam with routine gynecological examStart: 03-19-2024 End: 45-54-5053lzyolkyywlEGQ RAMEYNot AvailableStart: 01-11-2024 End: 03-67-6413euvvofpyzjWYA RAMEYNot AvailableStart: 01-04-2024 End: 28-04-1194gjvjhyumazXNM RAMEYNot AvailableStart: 08-03-2023 End: 07-68-7467mvadaymbdzDddzp Kuns Other [place] [employer] Other Start: 21-44-8267Iintnkt evaluation of patient and reportReal Weaver [facility] [place]Start: 05-91-2301Wnofksiin encounter Real [facility] hospitalaStart: 05-23-2023 End: 62-21-3125Tnicjyelz department patient visitDO Real Anton Work Phone: [facility] Work Phone: Start: 03-01-2023 End: 25-24-4868wxjlfauxykFtdyc Kuns Other [employer] Other Start: 20-02-8285Reotcqvhj encounterBrydeon AntonHU [facility] [place]Start: 02-28-2023 End: 62-75-1151ydgikdfkgcTvmgs Kuns Other [employer] Other Start: 45-52-1610Tydeuvprv for general adult medical examination without abnormal findingsBrydeon AntonHU [facility] [place] Start: 78-28-2517Ymnhmqj encounter statusReal Anton Other [employer] Other Start: 47-37-0234Kgerkbbo preventive med est patient 18-39 yrsBrydeon AntonHU [facility] [place]Start: 09-16-2022 End: 34-56-9634arprfkpzotMINHFAVT EBERLYFacility:L9Xmoom: 09-13-2022 End: 52-18-1493loxclkqdnwYrqzi Kuns Other [employer] Other Start: 16-51-8414Ngnraxzvt encounterBrydeon AntonHU [facility] [place]Start: 59-85-7571Vcbjavlzj for general adult medical examination without abnormal findingsReal AntonHU [facility] [place] Start: 88-01-7546Cmlrejlc preventive med est patient 18-39 yrsBrydeon AntonHU [facility] [place]Start: 05-04-2022 End: 74-39-9810mttsigqrnoZK Real Anton Work Phone: [facility] Work Phone: Start: 05-04-2022 End: 32-39-6927Azlrrts encounter procedureDO Real Anton Work Phone: [facility]-Lab [place]Start: 03-31-2022 End: 25-18-5534xbtyxmonpdInche Kuns Other [employer] Other Start: 73-64-5714Zjfsarizs encounterReal Weaver [facility] [place]Start: 12-28-2021 End: 97-35-1053fbrmkfnnxrVfuay Kuns Other [employer] Other Start: 03-00-0427Mghnbm outpatient visit 15 minutes Real Weaver [facility] [place]aliaStart: 28-91-5731Oqxfbwibo encounterReal Weaver [facility] [place]aliaStart: 06-09-2021 End: 06-49-8967nklhiilozhYaebp Kuns Other [employer] Other Start: 60-40-3526Icmjpge evaluation of patient and reportReal Weaver Family Medicine [place]aliaStart: 57-65-8496Mrvpmucrg encounter Real Weaver [facility] Procedures DateProcedureProcedure DetailPerforming ClinicianStart: 72-09-2097AEC,APTIMA HPV,AGE GDLNNora CROWE Work Phone: Start: 95-61-3954UVJR-CoV-2, Influenza & RSV (PCR)DO Real Anton Work Phone: Start: 61-98-5809Hazssztfnaa observation [Identifier] in Cervix by Cyto Alla CROWE Work Phone: Plan of Treatment DateCare ActivityDetailAuthorStart: 18-61-3387Vrlvpzsjr for malignant neoplasm of cervixHPV/CotestNOMS HealthcareStart: 19-15-5054Rnipvyeuq for malignant neoplasm of cervixNOMS HealthcareStart: 43-73-9324Qyxzxuj referralMer[facility] Work Phone: Start: 90-28-1863YwtkgrbhnSelect [facility] Start: 03-25-2025 End: 34-71-6577Nihioxc encounter znxblkywl81/26/2025 10:00 AM EDT Office Visit [facility] OB [address] [place] [phone] Nora Maurice PA [address] [place], [facility] [facility] OBStart: 57-20-5690NmpubdumjSelect Medical Specialty [facility], [facility] Start: 45-12-8405Lpoxiscnd vaccinationInfluenza Vaccine (#1)[facility] Start: 03-19-2024 End: 41-10-1833Tjzjxzy encounter lutxxpzdf50/20/2024 9:00 AM EDT Office Visit [facility] [address] [place] [address] Nora Maurice PA [address] [address] ArrivedNORTHRIDGE [facility] OBComment on above:ArrivedCardiovascular stress testingSelect Medical Specialty Hospital [facility], IncComprehensive metabolic 1999 panel - Serum or PlasmaSelect Medical Specialty Hospital [facility], IncComprehensive metabolic 1999 panel - Serum or [facility] CenterCytology Cervical or vaginal smear or scraping studyPap Smear Pathology and Cytology Routine Well woman exam with routine gynecological exam Ordered: 03/19/2024[facility] Work Phone: comment on above:Ordered: 03/19/2024Human papilloma virus DNA [Presence] in Unspecified specimen by Probe with amplificationHPV DNA probe, amplified Microbiology Routine Well woman exam with routine gynecological exam Ordered: 03/19/2024[facility] ChildrenComment on above:Ordered: 03/19/2024 Patient EducationDiarrhea, Adult [facility] Work Phone: [facility]Fire[facility] Work Phone: Immunizations Immunization DateImmunizationNotesCare MirjjobyZclghjyn82-94-0085EYTLK-60 Vaccine Moderna - Documentation Purposes OnlyBryan Ricks Other [facility]12-01-2021COVID-19 Vaccine Moderna - Documentation Purposes OnlyBryan Kuns Other [facility]10-04-2016influenza, injectable, quadrivalent, preservative freeBryan Kuns Other [facility]10-04-2016influenza virus vaccine, unspecified formulationNora CROWE Work Phone: [facility] ChildrenFhcdfbelhm95-10-0632xvrbdkjfl B vaccine, adult dosageBryan Kuns Other [facility]11-04-2015influenza, injectable, quadrivalent, preservative freeBryan Kuns Other [facility]04-22-2008hepatitis B vaccine, pediatric or pediatric/adolescent dosageBryan Kuns Other [facility]03-19-2008hepatitis B vaccine, pediatric or pediatric/adolescent dosageBryan Kuns Other [facility]06-06-2003measles, mumps and rubella virus vaccineBryan Kuns Other [facility]06-06-2003TD(adult) unspecified formulationBryan Kuns DO Work Phone: [facility]08-03-1992diphtheria, tetanus toxoids and pertussis vaccineBryan Ricks Other [facility]08-03-1992haemophilus influenzae type b vaccine, conjugate unspecified formulationBryan Kuns Other [facility]08-03-1992measles, mumps and rubella virus vaccineBryan Kuns Other [facility]08-03-1992trivalent poliovirus vaccine, live, oralBryan Kuns Other [facility]03-02-1992diphtheria, tetanus toxoids and pertussis vaccineBryan Kuns Other [facility]03-02-1992haemophilus influenzae type b vaccine, conjugate unspecified formulationBryan Kuns Other [facility]09-23-1991diphtheria, tetanus toxoids and pertussis vaccineBryan Kuns Other [facility]09-23-1991haemophilus influenzae type b vaccine, conjugate unspecified formulationBryan Kuns Other [facility]09-23-1991trivalent poliovirus vaccine, live, oralBryan Kuns Other [facility]07-09-1991diphtheria, tetanus toxoids and pertussis vaccineBryan Kuns Other [facility]07-09-1991haemophilus influenzae type b vaccine, conjugate unspecified formulationBryan Kuns Other [facility]07-09-1991trivalent poliovirus vaccine, live, oralBryan Kuns Other [facility], IncNEGATED: Highlighted row has not occurred!64-98-8769nfehshybn, seasonal, injectablePatient Objection Real Anton Other [facility] Payers DatePayer CategoryPayerPolicy [id number] BCBS [id number] 2023-[facility] [phone] [address] [place] [address] [id number] [facility] [id number] [id number] 2.16.840.1.022183.3.57[id number] 2.16.840.1.917368.3.57[id number] 2.840.1.489526.3.579.2.531118-15-6042Emia-[id number] [facility] [id number] 2.0.1.870699.19Blue [facility] Care [id number] 2.0.1.322[id number] 2.840.1.163267.3.579.2.593 [id number] 2.840.1.0[id number] 2.0.1.723748.3.579.2.531 Social History DateTypeDetailFacilityUnknown if ever smokedPetersburg [employer] Other [facility] At [facility] [employer] Other Start: 93-61-5049Zlo Assigned At BirthSelect Medical TriHealth Rehabilitation Hospitaltart: 05-23-2023 End: 68-54-9674Yxrkugx smoking status NHISNever smoked tobacco (finding) [facility], IncTobacco smoking status NHISTobacco smoking consumption unknownNOMS HealthcareStart: 21-30-8191Wvb assigned at birthNot on fileNOMS HealthcareSexFemale (finding)[facility] Clinical Notes 10-02-2015 to 04-09-2025 Note Date & AawuMkorRvxsvkkk80-59-4096 Evaluation note* Author Akua Barksdaleking's daughters medical centerson[facility] 2024 7:53amThe above note written by Akua WOOTEN acting as human recorder, note dictated by Dr. Real Anton. [facility] Work Phone: 1(205) 504-210909-06-2024 Evaluation note* Author Akua Barksdaleking's daughters medical [facility]erson[facility] 2023 7:59amThe above note written by Akua WOOTEN acting as human recorder, note dictated by Dr. Real Anton. [facility] Work Phone: 1(318) 385-718208-20-2024 History of Present illness Narrative* SEBASTIEN Cameron - 03/19/2024 9:00 AM EDT Reason for Appointment: Patient ID: Emilie Dc is a 33 y.o. female who presents for Well Women Visit Patient presents today for Annual Exam. MEDICATIONS [...] Problems Past Medical History: Diagnosis Date Hypothyroid ([facility]) HISTORY PAST MEDICAL HISTORY SOCIAL HISTORY Past Medical History: Diagnosis Date Hypothyroid ([facility]) Social History Tobacco Use Smoking status: Not [...] appearance. She is well-developed. Genitourinary: Vulva normal. Right Adnexa: not tender and no mass present. Left Adnexa: not tender and no mass present. No cervical discharge. Breasts: Breasts are soft. Right: Normal. Left: Normal. HENT: Head: Normocephalic. Nose: Nose normal. Mouth/Throat: Mouth: Mucous membranes are moist. Cardiovascular: Rate and Rhythm: Normal rate and regular rhythm. Pulmonary: Effort: Pulmonary effort is normal. Breath sounds: Normal breath sounds. Abdominal: General: Bowel sounds are normal. There is no distension. Palpations: Abdomen is soft. Tenderness: There is no abdominal tenderness. There is no guarding or rebound. Musculoskeletal: General: No swelling. Normal range of motion. Cervical back: Normal range of motion. Right lower leg: No edema. Left lower leg: No edema. Neurological: General: No focal deficit present. Mental Status: She is alert and oriented to person, place, and time. Skin: General: Skin is warm and dry. Psychiatric: Mood and Affect: Mood normal. Behavior: Behavior normal. Vitals and nursing note reviewed. Exam conducted with a rail car maintenance mechanic present. Vitals: Estimated body mass index is 39.86 kg/m as calculated from the following: Height as of this encounter: 5'. Weight as of this encounter: 204 lb 1.9 oz. BP: 120/68 Patient's last menstrual period was 03/13/2024. ASSESSMENT & PLAN ICD-10-CM 1. Well woman [...] for annual unless needed otherwise. Documented by Luz Doss LPN on behalf of: SEBASTIEN Cameron documented in this encounterShriners Hospitals for ChildrenZkphxkborp56-06-3685 Evaluation note* Encounter Date Diagnosis Assessment Notes Treatment Notes Treatment Clinical Notes Jul, Sinus drainage (ICD-10 - J34.89) In house covid, flu, rsv and strep test was all negative. [employer] Other 10-24-2023 Hospital Discharge instructions Additional Instructions Recommend continue to drink Pedialyte at home and replacing her fluids and electrolytes. Return to emergency department if your diarrhea worsens, becomes bloody, worsening fevers, chills, return of nausea and vomiting, difficulty walking, excessively sleepy, confusion or any other symptom of concern. Follow-up with your primary care provider in 3 to 5 days. [facility] Work Phone: 1(402) 731-500608-02-2023 Evaluation note* Encounter Date Diagnosis Assessment Notes Treatment Notes Treatment Clinical Notes Feb, Pain in right wrist (ICD-10 - M2 5.531) Feb,ain in left wrist (ICD-10 - M25.532) [employer] Other 08-01-2023 Evaluation note* Encounter Date Diagnosis Assessment Notes Treatment Notes Treatment Clinical Notes Feb, Wellness examination (ICD-10 - Z 00.00) Personalized health advice was given to the beneficiary to health education of preventative counseling services or programs aimed at reducing identified risk factors and improving self-management or community-based lifestyle interventions to reduce health risks and promote self-management and wellness, including physical activity and nutrition. A written plan for screenings was discussed, flu vaccination, routine lab studies, eye exams, as well as risk factors for other medical problems. I did complete the lab order form she provided from her work to get her yearly labs done. Her EKG is normal. Feb,Hypothyroid (ICD-10 - E03.9) Pt is doing well on the above medication, therefore a refill was provided for them today. We will continue to monitor. Feb,Wrist pain (ICD-10 - M25.539) Pt reports she has been struggling with wrist pain, and states she has been wearing wrist braces with no improvement. Her right wrist is worse than her left. Pt's Phalen test was negative, and she denied paraesthesia with tapping on the medial nerve. We discussed an EMG, as well as what treatment options could look like. An EMG ordered today, and I am agreeable to pt having this done with Gabi. [employer] Other 02-14-2023 Evaluation note* Encounter Date Diagnosis Assessment Notes Treatment Notes Treatment Clinical Notes Aug, Hypothyroid (ICD-10 - E03.9) [employer] Other 10-05-2022 Evaluation note* Encounter Date Diagnosis Assessment Notes Treatment Notes Treatment Clinical Notes Apr, Wellness examination (ICD-10 - Z 00.00) Personalized health advice was given to the beneficiary to health education of preventative counseling services or programs aimed at reducing identified risk factors and improving self-management or community-based lifestyle interventions to reduce health risks and promote self-management and wellness, including physical activity and nutrition. A written plan for screenings was discussed, flu vaccination, routine lab studies, eye exams, as well as risk factors for other medical problems.Review of pt's EKG which does reveal low voltage in precordial leads. I explained how this remains unchanged from her previous EKGs. Apr,Hypothyroid (ICD-10 - E03.9) The above labs were ordered today, and I encouraged pt to call and check these results soon. We canadjust her medication at that time if needed. Pt is to continue with the above medication and we will continue to monitor. [employer] Other 05-31-2022 Evaluation note* Encounter Date Diagnosis Assessment Notes Treatment Notes Treatment Clinical Notes November, Contact dermatitis (ICD-10 - L25 .9) Noted upon examination. Therefore, I did prescribe the above medication and we will also give a solumedrol injection in the office today. We will continue to monitor. [employer] Other 11-10-2021 Evaluation note* Encounter Date Diagnosis Assessment Notes Treatment Notes Treatment Clinical Notes May, Sinus congestion (ICD-10 - R09.8 1) Patient advised of her negative COVID test and a copy was emailed to her per her request. Dr. Donohuedated on her condition and a zpack was prescribed for her. She was encouraged to call with any concerns or with any worsening symptoms [employer] Other 03-04-2016 History general Narrative - Reported* Type Description Date Medical History 10/02/152018 EKG Medical HistoryHypothyriodismMedical HistoryanxietyMedical Aevbrzr7405/04/2022 EKG Surgical Historytubal ligationHospitalization Rlkcxhuzxzpaqwjucl2348 [employer] Other 03-04-2016 History general Narrative - Reported* Type Description Date Medical History 10/02/152018 EKG Medical HistoryHypothyriodismMedical HistoryanxietyMedical Vtptsjn9705/04/2022 EKG Medical Xrrfsab4202/28/2023 EKGSurgical Historytubal ligationHospitalization Xymoazyodwbnexsrdx1570 [employer] Other 03-04-2016 History general Narrative - Reported* Type Description Date Medical History 10/02/15 EKG Medical HistoryHypothyriodismMedical HistoryanxietySurgical Historytubal ligationHospitalization Grbnrlqpsspfcvngdc1971 [employer] Other Evaluation noteNo InformationNortThomas Jefferson University Hospital [email or web address] Other Evaluation noteNo assessment information available [facility] Work Phone: Evaluation note* Author Akua [facility] 2023 7:59amThe above note written by Akua WOOTEN acting as human recorder, note dictated by Dr. Real Anton. [facility] Work Phone: Evaluation note* Diagnosis Well woman exam with routine gynecological exam Routine gynecological examination documented in this encounter NOMS HealthcareEvaluation note* Author Akua [facility] 2024 7:53amThe above note written by Akua WOOTEN acting as human recorder, note dictated by Dr. Real Anton. [facility] Work Phone: History general Narrative - ReportedNoHaven Behavioral [facility] [email or web address] Other Summary Purpose Family History No Family History Records Found Relationship Condition Age at Onset Recorded Date/T norma grandparent Unknown Malignant neoplasmUnknownmotherMalignant melanomaUnknown Advance Directives No Advanced Directives Records Found Advance Directive Response Recorded Date/ Time Advance Directives No August 09, 2018 1:40pm Reason for Referral Reason *FU 03/09 EMG bila teral lower extremity Diagnosis 1 Pain in right wrist (M25.531) Referral Organization [facility] [place] Referring Provider First Name Real Referring Provider Last Name Sloane Referring Provider Specialty Family Prac krunal Referred Organization Unknown Facility Referred Provider Andrew Alicia Referred Provider Specialty Neurology Referral Priority Routine General Notes Dora Rush 023 07:12:37 AM >Received today. Dr. Alicia's office requests us to fax the referral to them and they will call and schedule patient. Referral was fax. Clinical Notes Office [phone] Chief Complaint and Reason for Visit Chief Complaint lethargic Chief Complaint wellness Reason for Visit Annual wellness visi t Chief Complaint Admit Date wellness April 09, 2025 7:32am Reason for Visit Admit Date Wellness examination April 09 7:32am Skin lesion April 09, 2025 7:32am Abnormal EKG April 09, 2025 7:32am Additional Source Comments INFORMATION SOURCE (unrecogn ized section and content) DATE CREATED AUTHOR 11/24/2020 [facility] DATE CREATED AUTHOR AUTHOR'S ORGANIZ ATION 10/07/2022 [facility] DATE CREATED AUTHOR AUTHOR'S ORGANIZ ATION 03/20/2024 [facility] EPIC DATE CREATED AUTHOR AUTHOR'S ORGANIZ ATION 04/21/2024 [facility] EPIC DATE CREATED AUTHOR AUTHOR'S ORGANIZ ATION 05/07/2025 [facility]placed By [facility] REASON FOR VISIT (unrecogniz ed section and content) ReasonCommentsWell Women Visit Care Teams (unrecognized sec tion and content) Team Status: Inactive Member Role Status Dates Real Anton DO Primary Care Provider, Attending Provi desiree Active Team Status: Active Member Role Status Dates Real Anton DO Primary Care Provider Active Team Status: Inactive Member Role Status Dates Real Anton DO Primary Care Provider Active Blanquita Solercy ProviderActive Team Status: Inactive Member Role Status Dates Real Anton DO Primary Care Provide r, Attending Provider Active Start: April 05, 2024 End: April 05, 2024 Team Status: Active Member Role Status Dates Real Anton DO Primary Care Provide r, Attending Provider Active Start: April 05, 2024 Team MemberRelationshipSpecialtyStart DateEnd Date Real Anton MD [address] [place] [id number] PCP - General02/07/23Team MemberRelationshipSpecialtyStart DateEnd Date Real Anton MD [address] [facility] [place] [address] PCP - General02/07/23 Team Status: Inactive Member Role Status Dates Real Anton DO Primary Care Provider Active Sta rt: April 09, 2025 End: April 09Vidya Dorman ProviderActiveStart: April 09, 2025 End: April 09, 2025 Team Status: Active Member Role Status Dates Real Anton DO Primary Care Provider Active Sta rt: April 09, 2025 Vidya Carranza ProviderActiveStart: April 09, 2025 Team Status: Active Member Role Status Dates Real Anton DO Primary Care Provider Active Sta rt: April 09, 2025 Real Anton DOOther ProviderActiveStart: April 09, 2025 Talat Ramachandran MDAttivette ProviderActiveStart: April 09, 2025 Goals (unrecognized section and content) Goals may be documented in a n alternate section FOR RECORDS PERTAINING TO PATIENTS WHO ARE OR HAVE BEEN ENROLLED IN A CHEMICAL DEPENDENCY/SUBSTANCEABUSE PROGRAM, SOME INFORMATION MAY BE OMITTED. This clinical summary was aggregated from multiple sources. Caution should be exercised in using it in the provision of clinical care. This summary normalizes information from multiple sources, and as a consequence, information in this document may materially change the coding, format and clinical context of patient data. In addition, data may be omitted in some cases. CLINICAL DECISIONS SHOULD BE BASED ON THE PRIMARY CLINICAL RECORDS. [facility] Learn with [facility]. provides no warranty or guarantee of the accuracy or completeness of information in this document.
== END 2025-05-28 20:03 | disposition home or self-care (01) ==
LOC: LAB 20:02
PROVIDERS: Visit Provider Nurse Practitioner Family
DX: Z01.419 Encounter for gynecological examination (general) (routine) without abnormal findings (principal)
CPT/HCPCS: 87624; 88175